=== PATIENT | male | born 1960 | race Hispanic/Latino ===

== ENCOUNTER 2020-04-02 15:10 | Inpatient (IN) | payer OTHER, SELFPAY ==
[~2020-04-02 15:10] MED LIST: Iopamidol 370 76% 100 ML VIAL ONE
[2020-04-02 15:34] LABS: #Lymphocytes 2.3 thou/uL (1.20-3.40); #Monocytes 1.2 thou/uL (0.11-0.59); #Neutrophils 9.8 thou/uL (1.40-6.50); %Basophils 0.3 % (0.0-1.0); %Eosinophils 0.2 % (0.0-10.0); %Lymphocytes 16.9 % (21.0-51.0); %Monocytes 9.3 % (0.0-10.0); %Neutrophils 73.2 % (42.0-75.0); Hemoglobin 15.7 g/dL (14.0-18.0); Mean Corpuscular HGB CONC 34.4 g/dL (32.0-36.0); Mean Corpuscular Hemoglobin 31.2 pg (27.0-31.0); Mean Corpuscular Volume 90.8 fL (78.0-98.0); Platelet Count 199 thou/uL (130-400); RBC Distribution Width 13.2 % (11.5-14.5); Red Blood Cell (RBC) Count 5.03 mill/uL (4.70-6.10); White Blood Cell (WBC) Count 13.3 thou/uL (4.8-10.8)
[2020-04-02 16:03] LABS: ALT (SGPT) 96 U/L (8-55); AST (SGOT) 231 U/L (5-34); Albumin 4.2 g/dL (3.5-5.0); Alkaline Phosphatase 111 U/L (40-110); Anion Gap 14 mmol/L (10-20); BUN (Urea Nitrogen) 9 mg/dL (8.4-25.7); Bilirubin, Total 0.9 mg/dL (0.2-1.2); Calc. Creatinine Clearance 0 mL/min (70-130); Calcium 8.6 mg/dL (7.8-10.44); Carbon Dioxide 24 mmol/L (22-29); Chloride 101 mmol/L (98-107); Estimated GFR-MDRD Greater than 90; Globulin 3.5 g/dL (2.4-3.5); Glucose 103 mg/dL (70-105); Lipase 46 U/L (8-78); Potassium 4.1 mmol/L (3.5-5.1); Protein, Total 7.7 g/dL (6.0-8.3); Sodium 135 mmol/L (136-145)
[2020-04-02] MEDS ORDERED: Acetaminophen/Codeine 30-300mg Tablet PO PRN (16:11)
[2020-04-02] MEDS ORDERED: Zolpidem Tartrate 5 MG TAB PO PRN (16:11)
[2020-04-02] MEDS ORDERED: Mag-Al 1200 mg/1200 mg/30 ML UDCUP PO PRN (16:11)
[2020-04-02] MEDS ORDERED: Nitroglycerin 0.4 MG TAB (25 Tab Bottle) SL PRN (16:11)
[2020-04-02] MEDS ORDERED: traMADol HCl 50 MG TAB PO PRN (16:11)
[2020-04-02] MEDS ORDERED: Milk Of Magnesia 30 ML UDCUP PO PRN (16:11)
[2020-04-02] MEDS ORDERED: Sodium Chloride 0.9% 250 ML IV SCH (16:15)
[2020-04-02] MEDS ORDERED: Heparin 10,000 UNITS/ 10 ML VIAL SLOW IVP SCH (16:15)
[2020-04-02 16:29] LABS: INR-International Normal Ratio 0.9; Prothrombin Time 12.6 sec (12.0-14.7)
[2020-04-02 16:30] LABS: PTT 41.4 sec (22.9-36.1)
[2020-04-02] MEDS ORDERED: Nitroglycerin 0.4 MG TAB (25 Tab Bottle) ONE (16:50)
[2020-04-02] MEDS ORDERED: Morphine 4 MG/ML VIAL ONE (17:11)
[2020-04-02] MEDS ORDERED: Morphine 2 MG/ML VIAL ONE (19:33)
[2020-04-02 22:46] LABS: Troponin I 25.524 ng/mL (< 0.028)
[2020-04-02 23:54] VITALS: BMI 23.9
[2020-04-03] MEDS: Atorvastatin Calcium 40 MG TAB PO SCH ×2 (00:32→20:57)
--- NOTE | 2020-04-03 00:44 | HP ---
CHIEF COMPLAINT: Chest pain. HISTORY OF PRESENT ILLNESS: Mr. Castellanos is a pleasant 59-year-old gentleman, who comes to the hospital for chest pain. He actually presented to a free-standing ER in [place], [place]. It is unclear why he was transferred here and it is unclear why he was accepted being so far away. Apparently, there was concern about ST-elevation MA over there, but I do not know if he was not just accepted at hospitals in [place], which were closer by. Nevertheless, he was transferred here and on arrival, he had an EKG done that showed inferior Q-waves with some ST elevations concerning for an acute MA. He had had pain for about a day at that point and his troponin at the outside facility was about 17. Because he was complaining of ongoing chest pain, he was taken to the catheterization lab emergently, where he was found to have an occluded RCA, which is probably the culprit. RCA is actually very well collateralized from the left and he has epicardial collaterals from the left circumflex. However, the left circumflex is 100% occluded and has also epicardial collaterals to itself from the left main. LAD has sequential 80% lesions with diagonal severe stenosis, so plan is to do open heart surgery once his MA is cooled down a little bit. Currently, Mr. Castellanos is pain free. He states his pain has calmed down now. Coronary artery disease with previous stent from heart catheterization and RCA stent. He states this was many, many years ago. Medication noncompliance. He states he has not seen a physician in many, many years now and he only takes an aspirin. MEDICATIONS: 1. Aspirin 81 mg a day. SOCIAL HISTORY: Occasional alcohol use. No tobacco, no drugs. FAMILY HISTORY: Noncontributory. ALLERGIES: NO KNOWN DRUG ALLERGIES. PAST SURGICAL HISTORY: No surgeries except for the stenting in the past. REVIEW OF SYSTEMS: A 12-point review of systems was done and was found to be negative other than stated in the history of present illness. PHYSICAL EXAMINATION: VITAL SIGNS: Temperature 98.2, pulse 81, respiratory rate 23, saturating 100% on 2 L nasal cannula, blood pressure 128/86. GENERAL: Awake, alert, oriented x3. No distress. [place]er-speaking only. HEENT: Normocephalic atraumatic. NECK: Supple. LUNGS: Clear. CARDIOVASCULAR: S1 and S2. No S3 or S4. There is a grade 2/6 systolic murmur. ABDOMEN: Soft, positive bowel sounds. EXTREMITIES: Trace edema. SKIN: Warm and dry. LABORATORY DATA: Laboratory work was reviewed from outside facility. He has a troponin of 17. We have blood work here and white count was 13, hemoglobin 15, hematocrit 45, and platelet count 199. Chemistries; sodium 135, otherwise unremarkable. Normal GFR. First troponin here was 21.5. Alkaline phosphatase of 111, ALT of 96, AST of 231. BNP was 190. Albumin of 4.2. EKG was reviewed. ASSESSMENT AND PLAN: 1. Acute inferior ST-elevation MA, late presentation over 24 hours old. 2. Multivessel coronary artery disease. 3. Medication noncompliance. PLAN: 1. Evaluation by Cardiothoracic Surgery for consideration of coronary artery bypass grafting. 2. At this point, he is probably done with injury that he was going to have for his MA and we may need to wait for him to cool off a little bit before doing any surgical intervention. 3. Currently, he is pain free. We will continue heparin drip for now and depending on how he does in the next few days, we will decide on the timing of the surgery. 4. High dose statin. 5. Aspirin. No Plavix due to impending surgery. 6. PPI for stress ulcer prophylaxis. 7. Full code. 75 minutes of critical care time at bedside. Job ID: [id number]
[2020-04-03 05:26] LABS: #Basophils 0.1 thou/uL (0.0-0.2); #Lymphocytes 1.8 thou/uL (1.20-3.40); #Monocytes 1.4 thou/uL (0.11-0.59); #Neutrophils 9.2 thou/uL (1.40-6.50); %Basophils 0.5 % (0.0-1.0); %Eosinophils 0.2 % (0.0-10.0); %Lymphocytes 14.5 % (21.0-51.0); %Monocytes 11.3 % (0.0-10.0); %Neutrophils 73.5 % (42.0-75.0); Hemoglobin 14.5 g/dL (14.0-18.0); Mean Corpuscular HGB CONC 34.5 g/dL (32.0-36.0); Mean Corpuscular Hemoglobin 31.7 pg (27.0-31.0); Mean Corpuscular Volume 91.7 fL (78.0-98.0); Mean Platelet Volume 7.2 fL (7.4-10.4); Platelet Count 185 thou/uL (130-400); RBC Distribution Width 13.3 % (11.5-14.5); Red Blood Cell (RBC) Count 4.56 mill/uL (4.70-6.10); White Blood Cell (WBC) Count 12.6 thou/uL (4.8-10.8)
[2020-04-03 06:13] LABS: ALT (SGPT) 77 U/L (8-55); AST (SGOT) 156 U/L (5-34); Albumin 3.7 g/dL (3.5-5.0); Alkaline Phosphatase 95 U/L (40-110); Anion Gap 13 mmol/L (10-20); BUN (Urea Nitrogen) 10 mg/dL (8.4-25.7); Calc. Creatinine Clearance 110 mL/min (70-130); Calcium 8.2 mg/dL (7.8-10.44); Carbon Dioxide 25 mmol/L (22-29); Chloride 100 mmol/L (98-107); Estimated GFR-MDRD Greater than 90; Globulin 3.4 g/dL (2.4-3.5); Glucose 105 mg/dL (70-105); Potassium 3.8 mmol/L (3.5-5.1); Protein, Total 7.1 g/dL (6.0-8.3); Sodium 134 mmol/L (136-145)
[2020-04-03 06:26] LABS: CKMB 45.4 ng/mL (0-6.6); Troponin I 25.654 ng/mL (< 0.028)
--- NOTE | 2020-04-03 08:29 | RAD ---
XR Chest 1 View Portable History: Chest pain Comparison: Radiograph prior day Findings: Lungs are mildly hypoinflated. No confluent airspace consolidation, pneumothorax or effusio n. No acute osseous abnormality. Impression: No acute intrathoracic abnormality.
[2020-04-03] MEDS ORDERED: FLU VACC QS2020-21(6MOS UP)/PF 60 MCG/0.5 ML SYRINGE IM ONE (09:00)
[2020-04-03] MEDS ORDERED: Metoprolol Tartrate 5 MG/5 ML VIAL ONE (09:04)
[2020-04-03] MEDS: Aspirin Chewable 81 MG TAB PO SCH (09:06)
[2020-04-03] MEDS ORDERED: Docusate 100 MG CAP PO SCH (10:00)
[2020-04-03] MEDS ORDERED: Metoprolol Tartrate 5 MG/5 ML VIAL IVP SCH (11:45)
[2020-04-03] MEDS: Heparin 25,000 units/D5W 500 ML IVPB SCH (12:10)
--- NOTE | 2020-04-03 12:24 | PDOC.CPN ---
- Subjective Date: 04/03/20 Time: 12:21 Interval history: No new issue.s Only chest pain when he takes a deep breath otherwise pain free. - Review of Systems General: denies: fever/chills, weight/appetite/sleep changes, night sweats, fatigue Respiratory: denies: cough, congestion, shortness of breath, exercise intolerance Cardiovascular: denies: chest pain, palpitation, edema, paroxysmal nocturnal dyspnea, orthopnea Gastrointestinal: denies: nausea, vomiting, diarrhea, constipation, abd pain, GI bleeding Musculoskeletal: denies: pain, tenderness, stiffness, swelling, arthritis/arthralgias Neurological: denies: numbness, syncope, seizure, weakness - Objective Allergies/Adverse Reactions: Allergies Allergy/AdvReac Type Severity Reaction Status Date / Time No Known Allergies Allergy Unverified 04/02/20 17:30 Visit Medications: Current Medications Acetaminophen/Codeine Phosphate (Acetaminophen/Codeine 30-300mg Tablet) 1 tab PO Q4H PRN PRN Reason: Mild Pain (1-3) Stop: 04/05/20 08:59 Al Hydroxide/Mg Hydroxide (Mag-Al 1200 Mg/1200 Mg/30 Ml Udcup) 30 ml PO Q3H PRN PRN Reason: Indigestion Stop: 04/05/20 08:59 Aspirin (Aspirin Chewable 81 Mg Tab) 81 mg PO DAILY [facility] Stop: 04/05/20 08:59 Last Admin: 04/03/20 09:06 Dose: 81 mg Documented by: Atorvastatin Calcium (Atorvastatin Calcium 40 Mg Tab) 80 mg PO HS [facility] Stop: 04/05/20 08:59 Last Admin: 04/03/20 00:32 Dose: Not Given Documented by: Docusate Sodium (Docusate 100 Mg Cap) 100 mg PO BID [facility] Stop: 04/05/20 08:59 Heparin Sodium (Porcine) (Heparin 10,000 Units/ 10 Ml Vial) 0 units SLOW IVP ASDIR [facility]; Protocol Stop: 04/05/20 08:59 Heparin Sodium/Dextrose (Heparin 25,000 Units/D5w) 500 mls @ 0 mls/hr IVPB INF [facility]; Protocol Stop: 04/05/20 08:59 Last Admin: 04/03/20 12:10 Dose: 500 mls Documented by: Cefazolin Sodium/Dextrose 2 gm (/ Device) 50 mls @ 100 mls/hr IVPB ONCALL-OR [facility] Stop: 04/05/20 18:00 Magnesium Hydroxide (Milk Of Magnesia 30 Ml Udcup) 30 ml PO Q12H PRN PRN Reason: Constipation Stop: 04/05/20 08:59 Metoprolol Tartrate (Metoprolol Tartrate 25 Mg Tab) 25 mg PO BID [facility] Metoprolol Tartrate (Metoprolol Tartrate 5 Mg/5 Ml Vial) 2.5 mg IVP NOW [facility] Stop: 04/03/20 14:00 Last Admin: 04/03/20 11:55 Dose: Not Given Documented by: Metoprolol Tartrate (Metoprolol Tartrate 25 Mg Tab) 25 mg PO BID [facility] Miscellaneous Information (Communication Order-Pharmacy ) 1 each FS ONE [facility] Stop: 04/05/20 09:00 Nitroglycerin (Nitroglycerin 0.4 Mg Tab (25 Tab Bottle)) 0.4 mg SL Q5MIN PRN PRN Reason: Chest Pain Stop: 04/05/20 08:59 Tramadol HCl (Tramadol Hcl 50 Mg Tab) 50 mg PO Q6H PRN PRN Reason: Pain Stop: 04/05/20 08:59 Zolpidem Tartrate (Zolpidem Tartrate 5 Mg Tab) 5 mg PO HSPRN PRN PRN Reason: Insomnia Stop: 04/05/20 08:59 Vital Signs & Weight: Vital Signs Temp Pulse Ox 04/03/20 12:00 98.4 F 04/03/20 09:00 99.0 F 04/03/20 08:00 99 04/03/20 04:00 98.8 F Weight 143 lb 15.39 oz - Physical Exam General: alert & oriented x3 HEENT: mucus membranes moist Neck: supple neck Cardiac: regular rate and rhythm Lungs: normal breath sounds Neuro: grossly intact Abdomen: active bowel sounds Extremities: no edema Skin: clear Musculoskeletal: no pain - Labs Result Diagrams: 04/03/20 05:15 04/03/20 05:15 Troponin/CKMB CK-MB (CK-2) 45.4 ng/mL (0-6.6) H* 04/03/20 05:15 Troponin I 25.654 ng/mL (< 0.028) H* 04/03/20 05:15 - Telemetry Sinus rhythms and dysrhythmias: sinus rhythm - Assessment/Plan Assessment/Plan: 1. Inferior STEMI, late presentation 2. Multivessel CAD. 3. Ischemic cardiomyopathy PLAN: - CT surgery evaluation done. - Plan to do CABG in 2 days after cool down from late presentation [place]. - Continue Aspirin and high dose statin as well as heparin gtt.
[2020-04-03 12:44] LABS: #Neutrophils 7.7 thou/uL (1.40-6.50); %Basophils 0.4 % (0.0-1.0); %Eosinophils 0.3 % (0.0-10.0); %Lymphocytes 18.2 % (21.0-51.0); %Monocytes 9.4 % (0.0-10.0); %Neutrophils 71.7 % (42.0-75.0); Hemoglobin 14.2 g/dL (14.0-18.0); Mean Corpuscular HGB CONC 33.6 g/dL (32.0-36.0); Mean Corpuscular Volume 92.4 fL (78.0-98.0); Platelet Count 189 thou/uL (130-400); RBC Distribution Width 13.3 % (11.5-14.5); Red Blood Cell (RBC) Count 4.58 mill/uL (4.70-6.10); White Blood Cell (WBC) Count 10.7 thou/uL (4.8-10.8)
[2020-04-03 13:06] LABS: ALT (SGPT) 70 U/L (8-55); AST (SGOT) 129 U/L (5-34); Albumin 3.6 g/dL (3.5-5.0); Alkaline Phosphatase 93 U/L (40-110); Anion Gap 12 mmol/L (10-20); BUN (Urea Nitrogen) 9 mg/dL (8.4-25.7); Bilirubin, Total 1.1 mg/dL (0.2-1.2); Calc. Creatinine Clearance 102 mL/min (70-130); Calcium 8.2 mg/dL (7.8-10.44); Carbon Dioxide 25 mmol/L (22-29); Cardiac Risk 3.2 (Less than 4.5); Chloride 100 mmol/L (98-107); Cholesterol 150 mg/dl (< 200 Desired); Estimated GFR-MDRD Greater than 90; Globulin 3.3 g/dL (2.4-3.5); Glucose 171 mg/dL (70-105); HDL Cholesterol 47 mg/dL (>60 Neg Risk); LDL Cholesterol, Calculated 86 mg/dL; Potassium 3.5 mmol/L (3.5-5.1); Protein, Total 6.9 g/dL (6.0-8.3); Sodium 133 mmol/L (136-145); Triglycerides 83 mg/dL (Less than 150)
[2020-04-03 13:14] LABS: CKMB 27.1 ng/mL (0-6.6); Troponin I 23.347 ng/mL (< 0.028)
[2020-04-03] MEDS: Metoprolol Tartrate 25 MG TAB PO SCH ×2 (20:57→21:03)
[2020-04-03] MEDS: Docusate 100 MG CAP PO SCH (20:57)
[2020-04-04 05:20] LABS: #Basophils 0.1 thou/uL (0.0-0.2); #Eosinphils 0.1 thou/uL (0.0-0.7); #Lymphocytes 2.2 thou/uL (1.20-3.40); #Neutrophils 5.3 thou/uL (1.40-6.50); %Basophils 0.7 % (0.0-1.0); %Eosinophils 0.9 % (0.0-10.0); %Lymphocytes 25.9 % (21.0-51.0); %Neutrophils 61.5 % (42.0-75.0); Hemoglobin 14.3 g/dL (14.0-18.0); Mean Corpuscular HGB CONC 34.1 g/dL (32.0-36.0); Mean Corpuscular Hemoglobin 31.5 pg (27.0-31.0); Mean Corpuscular Volume 92.4 fL (78.0-98.0); Mean Platelet Volume 7.3 fL (7.4-10.4); Platelet Count 192 thou/uL (130-400); RBC Distribution Width 13.3 % (11.5-14.5); Red Blood Cell (RBC) Count 4.55 mill/uL (4.70-6.10); White Blood Cell (WBC) Count 8.7 thou/uL (4.8-10.8)
[2020-04-04 05:49] LABS: ALT (SGPT) 66 U/L (8-55); AST (SGOT) 88 U/L (5-34); Albumin 3.5 g/dL (3.5-5.0); Alkaline Phosphatase 100 U/L (40-110); Anion Gap 10 mmol/L (10-20); BUN (Urea Nitrogen) 10 mg/dL (8.4-25.7); Bilirubin, Total 1.1 mg/dL (0.2-1.2); Calc. Creatinine Clearance 103 mL/min (70-130); Calcium 8.4 mg/dL (7.8-10.44); Carbon Dioxide 28 mmol/L (22-29); Chloride 101 mmol/L (98-107); Estimated GFR-MDRD Greater than 90; Globulin 3.5 g/dL (2.4-3.5); Glucose 120 mg/dL (70-105); Potassium 3.7 mmol/L (3.5-5.1); Sodium 135 mmol/L (136-145)
[2020-04-04 08:47] LABS: Hemoglobin A1c 5.5 % (4.0-6.0)
[2020-04-04] MEDS: Metoprolol Tartrate 25 MG TAB PO SCH ×4 (09:27→20:18)
[2020-04-04] MEDS: Aspirin Chewable 81 MG TAB PO SCH (09:27)
[2020-04-04] MEDS: Docusate 100 MG CAP PO SCH ×2 (09:27→20:18)
--- NOTE | 2020-04-04 09:38 | CON ---
DATE OF CONSULTATION: 04/03/2020 REQUESTING PHYSICIAN: Dr. Benton. CHIEF COMPLAINT: Chest pain. HISTORY OF PRESENT ILLNESS: The patient is a 59-year-old man who is Thai-speaking only. He was transferred here from [place] with prolonged chest pain, inferior ST elevations and a positive troponin and underwent emergent cardiac catheterization that demonstrated severe 3-vessel coronary disease. The patient when questioned about the right coronary stent, said that he had undergone stenting many years ago and that he has not seen a physician in many years. His only medication that he currently takes is aspirin and it is not clear what other past medical history he might have. The interview was conducted with the assistance of a parcel post weigher service as well as reviewing the chart and the history documented by Dr. Benton, who is fluent in Thai. The patient reported substernal chest pain that was pleuritic in nature and that he had it with inhalation, but not constantly. He did, however, report jaw discomfort that would come and go and it had been present during his episode of chest pain. PAST MEDICAL HISTORY: The patient denies any past medical history beyond his coronary stenting. MEDICATIONS: His only medication is aspirin. ALLERGIES: HE DENIES ANY MEDICAL OR FOOD ALLERGIES. SOCIAL HISTORY: He says that he does not smoke and never has. FAMILY HISTORY: He denies any family history of coronary or cerebrovascular disease. REVIEW OF SYSTEMS: He denies any transient eye, speech, facial, or extremity symptoms suggestive of TIAs. He denies any leg pain on ambulation. He denies any shortness of breath. PHYSICAL EXAMINATION: VITAL SIGNS: He is 5 feet 4 inches and weighs 142.2 pounds. In the orthodontic laboratory technician, his heart rate was 82 and blood pressure 131/90. The following morning in the ICU, his heart rate was 88, blood pressure 118/64. His T-max overnight has been 98.8. On 3 L nasal cannula, his O2 saturations are 99% to 100%. HEENT: He has no xanthelasma. NECK: No JVD. No carotid bruits. LUNGS: He has clear breath sounds. HEART: Regular rate and rhythm without murmur, gallop, or rub. ABDOMEN: Soft, nontender without any organomegaly, masses, or bruits. EXTREMITIES: He has a right femoral sheath in place. He has easily palpable bilateral radial and left femoral pulses. On the right side, his dorsalis pedis and posterior tibial pulses were fairly easy to feel. His left dorsalis pedis seemed diminished and I was not able to palpate the left posterior tibial pulse. He has no clubbing, cyanosis, or edema. No obvious varicosities. NEUROLOGIC: Grossly nonfocal. His clinical Milad test is normal bilaterally and when testing his left (nondominant) hand with pulse ox waveform, he had a normal waveform that dampened with occlusion of both radial and ulnar vessels and returned to normal with release of the ulnar. LABORATORY DATA: His chest x-ray shows borderline cardiomegaly and some mild edema. His EKG showed Q-waves, ST elevations and T-wave inversions in inferior leads. His white count was 13.3, hemoglobin 15.7, hematocrit 45.7, platelets 199,000. His followup H and H were 14.5 and 41.9. His PT was 12.6 with an INR of 0.9 and on heparin drip his PTT is 94.7. His electrolytes were normal. His glucose 103, BUN 9, creatinine 0.72. Followup chemistries this morning showed a BUN of 10, creatinine 0.67, and glucose of 105. His calcium was 8.6, albumin 4.2, bilirubin 0.9, alkaline phosphatase was 111, AST 231, ALT 96. Those all came down with an alkaline phosphatase 95, AST 156 and ALT of 77. On presentation here, his troponin was 21.553 and BNP was 190.0. His followup troponin at about 10 o'clock last night was 25.524 and at 5 o'clock this morning was 25.654. His cardiac catheterization shows a right-dominant system with an occluded right coronary artery that had a proximal stent. There appears to be some subtle competitive flow in the distal right coronary artery that fills from left-sided collaterals and he has an occluded circumflex just beyond a very small OM1 and that vessel fills well by left-sided collaterals. He has about an 80% or 90% stenosis in his LAD at the first septal gear lapper and then another one just beyond a modest sized diagonal. He has a very small diagonal that comes off proximal to the first septal gear lapper. His LVEF was somewhere around 40% with a large area of inferior akinesis, but the base of the heart does appear to contract. LV pressure was 122/13 with an EDP of 15. An aortic pressure on pullback was 114/74 with a mean of 93. On echocardiography, his septum perhaps is a little hypokinetic but contracts. IMPRESSION AND RECOMMENDATION: 3-vessel coronary disease with acute myocardial infarction. Mildly decreased left ventricle function. I think he clearly would benefit from surgical revascularization and the only real issues in play have to do with timing of the procedure, appropriate conduit whether to bypass the right coronary system and how to manage him in between now and surgery. My biggest concern in the short run has to do with what he describes to me of jaw discomfort that comes and goes, suggesting some subtle ongoing ischemia or recurring ischemia. I have asked that he get a dose of IV Lopressor and then we will start him on oral Lopressor. I hope to be able to do his bypass surgery on Sunday morning, but of course will be prepared to change that schedule according to his clinical course. Job ID: [id number]
[2020-04-04] MEDS: Heparin 25,000 units/D5W 500 ML IVPB SCH (13:13)
--- NOTE | 2020-04-04 14:42 | PDOC.CPN ---
- Subjective Date: 04/04/20 Time: 14:39 Interval history: No chest pain. No new issues. - Review of Systems General: denies: fever/chills, weight/appetite/sleep changes, night sweats, fatigue Respiratory: denies: cough, congestion, shortness of breath, exercise intolerance Cardiovascular: denies: chest pain, palpitation, edema, paroxysmal nocturnal dyspnea, orthopnea Gastrointestinal: denies: nausea, vomiting, diarrhea, constipation, abd pain, GI bleeding Musculoskeletal: denies: pain, tenderness, stiffness, swelling, arthritis/arthralgias Neurological: denies: numbness, syncope, seizure, weakness - Objective Allergies/Adverse Reactions: Allergies Allergy/AdvReac Type Severity Reaction Status Date / Time No Known Allergies Allergy Unverified 04/02/20 17:30 Visit Medications: Current Medications Acetaminophen/Codeine Phosphate (Acetaminophen/Codeine 30-300mg Tablet) 1 tab PO Q4H PRN PRN Reason: Mild Pain (1-3) Stop: 04/05/20 08:59 Al Hydroxide/Mg Hydroxide (Mag-Al 1200 Mg/1200 Mg/30 Ml Udcup) 30 ml PO Q3H PRN PRN Reason: Indigestion Stop: 04/05/20 08:59 Aspirin (Aspirin Chewable 81 Mg Tab) 81 mg PO DAILY [facility] Stop: 04/05/20 08:59 Last Admin: 04/04/20 09:27 Dose: 81 mg Documented by: Atorvastatin Calcium (Atorvastatin Calcium 40 Mg Tab) 80 mg PO HS [facility] Stop: 04/05/20 08:59 Last Admin: 04/03/20 20:57 Dose: 80 mg Documented by: Docusate Sodium (Docusate 100 Mg Cap) 100 mg PO BID [facility] Stop: 04/05/20 08:59 Last Admin: 04/04/20 09:27 Dose: 100 mg Documented by: Heparin Sodium (Porcine) (Heparin 10,000 Units/ 10 Ml Vial) 0 units SLOW IVP ASDIR [facility]; Protocol Stop: 04/05/20 08:59 Heparin Sodium/Dextrose (Heparin 25,000 Units/D5w) 500 mls @ 0 mls/hr IVPB INF [facility]; Protocol Stop: 04/05/20 08:59 Last Admin: 04/04/20 13:13 Dose: 500 mls Documented by: Cefazolin Sodium/Dextrose 2 gm (/ Device) 50 mls @ 100 mls/hr IVPB ONCALL-OR [facility]ER[facility] Stop: 04/05/20 18:00 Magnesium Hydroxide (Milk Of Magnesia 30 Ml Udcup) 30 ml PO Q12H PRN PRN Reason: Constipation Stop: 04/05/20 08:59 Metoprolol Tartrate (Metoprolol Tartrate 25 Mg Tab) 25 mg PO BID [facility] Last Admin: 04/04/20 09:27 Dose: 25 mg Documented by: Metoprolol Tartrate (Metoprolol Tartrate 25 Mg Tab) 25 mg PO BID [facility] Last Admin: 04/04/20 09:28 Dose: Not Given Documented by: Miscellaneous Information (Communication Order-Pharmacy ) 1 each FS ONE [facility] Stop: 04/05/20 09:00 Nitroglycerin (Nitroglycerin 0.4 Mg Tab (25 Tab Bottle)) 0.4 mg SL Q5MIN PRN PRN Reason: Chest Pain Stop: 04/05/20 08:59 Tramadol HCl (Tramadol Hcl 50 Mg Tab) 50 mg PO Q6H PRN PRN Reason: Pain Stop: 04/05/20 08:59 Zolpidem Tartrate (Zolpidem Tartrate 5 Mg Tab) 5 mg PO HSPRN PRN PRN Reason: Insomnia Stop: 04/05/20 08:59 Vital Signs & Weight: Vital Signs Temp Pulse Ox 04/04/20 12:00 98.3 F 04/04/20 09:00 98.3 F 04/04/20 08:00 98 04/04/20 04:00 98.4 F Weight 143 lb 15.39 oz - Physical Exam General: alert & oriented x3 HEENT: mucus membranes moist Neck: supple neck Cardiac: regular rate and rhythm Lungs: normal breath sounds Neuro: grossly intact, no lateralizing findings Abdomen: active bowel sounds Extremities: no edema Skin: clear Musculoskeletal: no pain - Labs Result Diagrams: 04/04/20 04:40 04/04/20 04:40 Troponin/CKMB CK-MB (CK-2) 27.1 ng/mL (0-6.6) H* 04/03/20 12:34 Troponin I 23.347 ng/mL (< 0.028) H* 04/03/20 12:34 - Telemetry Sinus rhythms and dysrhythmias: sinus rhythm - Assessment/Plan Assessment/Plan: 1. Inferior STEMI, late presentation 2. Multivessel CAD. 3. Ischemic cardiomyopathy PLAN: - CABG tomorrow. - Continue Aspirin and high dose statin as well as heparin gtt.
[2020-04-04 16:26] LABS: Hemoglobin 14.4 g/dL (14.0-18.0); Platelet Count 197 thou/uL (130-400)
[2020-04-04] MEDS: Atorvastatin Calcium 40 MG TAB PO SCH (20:18)
[2020-04-05 04:39] LABS: #Eosinphils 0.1 thou/uL (0.0-0.7); #Lymphocytes 2.1 thou/uL (1.20-3.40); #Monocytes 0.8 thou/uL (0.11-0.59); #Neutrophils 5.1 thou/uL (1.40-6.50); %Basophils 0.4 % (0.0-1.0); %Eosinophils 1.3 % (0.0-10.0); %Lymphocytes 25.4 % (21.0-51.0); %Neutrophils 62.9 % (42.0-75.0); Hemoglobin 14.4 g/dL (14.0-18.0); Mean Corpuscular HGB CONC 33.7 g/dL (32.0-36.0); Mean Corpuscular Hemoglobin 31.1 pg (27.0-31.0); Mean Corpuscular Volume 92.1 fL (78.0-98.0); Mean Platelet Volume 6.8 fL (7.4-10.4); Platelet Count 218 thou/uL (130-400); RBC Distribution Width 13.2 % (11.5-14.5); Red Blood Cell (RBC) Count 4.64 mill/uL (4.70-6.10); White Blood Cell (WBC) Count 8.1 thou/uL (4.8-10.8)
[2020-04-05 05:02] LABS: ALT (SGPT) 59 U/L (8-55); AST (SGOT) 50 U/L (5-34); Albumin 3.4 g/dL (3.5-5.0); Alkaline Phosphatase 104 U/L (40-110); Anion Gap 11 mmol/L (10-20); BUN (Urea Nitrogen) 10 mg/dL (8.4-25.7); Bilirubin, Total 0.7 mg/dL (0.2-1.2); Calc. Creatinine Clearance 103 mL/min (70-130); Calcium 8.4 mg/dL (7.8-10.44); Carbon Dioxide 26 mmol/L (22-29); Chloride 103 mmol/L (98-107); Estimated GFR-MDRD Greater than 90; Globulin 3.6 g/dL (2.4-3.5); Glucose 119 mg/dL (70-105); Potassium 3.9 mmol/L (3.5-5.1); Sodium 136 mmol/L (136-145)
[2020-04-05] MEDS ORDERED: CEFAZOLIN 2 GM in Premix Bag 1 BAG IVPB SCH (06:00)
[2020-04-05] MEDS ORDERED: Communication Order-Pharmacy FS SCH (06:00)
[2020-04-05 07:28] LABS: SARS-CoV-2 NAA Rapid Test Not Detected (NotDetected)
[2020-04-05] MEDS ORDERED: Albumin 5% 0 ML ONE (08:38)
[2020-04-05] MEDS ORDERED: Albumin 5% 500 ML ONE (08:51)
[2020-04-05] MEDS ORDERED: Dexmedetomidine 200 MCG/2 ML VIAL ONE (09:01)
[2020-04-05] MEDS ORDERED: Fentanyl 100 MCG/2 ML VIAL ONE (09:01)
[2020-04-05] MEDS ORDERED: Phenylephrine 10 MG/ML VIAL ONE (09:01)
[2020-04-05] MEDS ORDERED: Midazolam HCl 2 mg/2 ml Vial ONE (09:01)
[2020-04-05] MEDS ORDERED: Heparin 10,000 UNITS/ 10 ML VIAL ONE (09:10)
[2020-04-05] MEDS ORDERED: Lidocaine 1% PF 5 ML VIAL ONE (09:28)
[2020-04-05] MEDS ORDERED: Nitroglycerin 50 MG/250 ML BOT ONE (09:28)
[2020-04-05] MEDS ORDERED: Thrombin 5000 UNITS/5 ML VIAL ONE (09:28)
[2020-04-05] MEDS ORDERED: Ketorolac Tromethamine 30 MG/ML VIAL ONE (09:28)
[2020-04-05] MEDS ORDERED: Lidocaine 2% PF 100 mg/5 ml Syringe ONE (09:28)
[2020-04-05] MEDS ORDERED: Cardioplegic Soln 1,000 ML BAG ONE (09:28)
[2020-04-05] MEDS ORDERED: Ondansetron PF 4 MG/2 ML Vial ONE (09:28)
[2020-04-05] MEDS ORDERED: Papaverine 60 MG/2 ML VIAL ONE ×2 (09:28→09:44)
[2020-04-05] MEDS ORDERED: Aminocaproic Acid 5 GM/20 ML VIAL ONE (09:28)
[2020-04-05] MEDS ORDERED: Vecuronium 10 MG VIAL ONE (09:28)
[2020-04-05] MEDS ORDERED: Sodium Bicarb 50 MEQ/50 ML Abboject 8.4% SYRINGE ONE (09:28)
[2020-04-05] MEDS ORDERED: Magnesium Sulfate 1 GM/2 ML VIAL ONE (09:28)
[2020-04-05] MEDS ORDERED: Dexamethasone 20 MG/5 ML VIAL ONE (09:28)
[2020-04-05] MEDS ORDERED: Mannitol 12.5 GM/50 ML ONE (09:28)
[2020-04-05] MEDS ORDERED: PROPOFOL 200 MG/20 ML VIAL ONE (09:28)
[2020-04-05] MEDS ORDERED: Rocuronium Bromide 10 MG/ML (10ML VIAL) ONE (09:28)
[2020-04-05] MEDS ORDERED: Heparin 5,000 UNITS/ML VIAL ONE (09:28)
[2020-04-05] MEDS ORDERED: Norepinephrine 4 MG/4 ML VIAL ONE (09:28)
[2020-04-05] MEDS ORDERED: Potassium Chloride 60 MEQ/30 ML VIAL ONE (09:28)
[2020-04-05] MEDS ORDERED: Heparin 30,000 units/30 ml VIAL ONE (09:28)
[2020-04-05] MEDS ORDERED: Calcium Chloride 1 GM/10 ML Abboject SYRINGE ONE (09:28)
[2020-04-05] MEDS: Metoprolol Tartrate 25 MG TAB PO SCH ×2 (09:32→09:33)
[2020-04-05] MEDS ORDERED: CEFAZOLIN 1 GM VIAL ONE (11:30)
[2020-04-05] MEDS ORDERED: Milrinone 10 MG/10 ML VIAL ONE (11:30)
[2020-04-05] MEDS ORDERED: Insulin Regular 300 UNITS/3 ML VIAL ONE (13:22)
--- NOTE | 2020-04-05 14:05 | PDOC.CPN ---
- Subjective Date: 04/05/20 Time: 20:23 Interval history: He had his CABG. - Review of Systems ROS unobtainable: due to endotracheal tube - Objective Allergies/Adverse Reactions: Allergies Allergy/AdvReac Type Severity Reaction Status Date / Time No Known Allergies Allergy Unverified 04/02/20 17:30 Visit Medications: Current Medications Cefazolin Sodium/Dextrose 2 gm (/ Device) 50 mls @ 100 mls/hr IVPB ONCALL-OR [facility] Stop: 04/05/20 18:00 Metoprolol Tartrate (Metoprolol Tartrate 25 Mg Tab) 25 mg PO BID [facility] Last Admin: 04/05/20 09:32 Dose: 25 mg Documented by: Vital Signs & Weight: Vital Signs Temp Pulse Ox 04/05/20 07:27 100 04/05/20 07:00 98.9 F 04/05/20 04:00 98.1 F Weight 143 lb 15.39 oz - Physical Exam General: other (Intubated) HEENT: mucus membranes moist Neck: supple neck Cardiac: regular rate and rhythm Lungs: clear to auscultation Neuro: grossly intact Abdomen: active bowel sounds Extremities: no edema Skin: clear Musculoskeletal: no pain - Labs Result Diagrams: 04/05/20 16:06 04/05/20 16:06 Troponin/CKMB CK-MB (CK-2) 27.1 ng/mL (0-6.6) H* 04/03/20 12:34 Troponin I 23.347 ng/mL (< 0.028) H* 04/03/20 12:34 - Telemetry Sinus rhythms and dysrhythmias: sinus rhythm - Assessment/Plan Assessment/Plan: 1. Inferior STEMI, late presentation 2. Multivessel CAD. 3. Ischemic cardiomyopathy 4. S/P CABG PLAN: - Continue supportive care. - ASA statin for life. - Will follow.
[2020-04-05] MEDS ORDERED: hydrALAZINE 20 MG/ML VIAL SLOW IVP PRN (15:30)
[2020-04-05] MEDS ORDERED: Morphine 2 MG/ML VIAL SLOW IVP PRN (15:30)
[2020-04-05] MEDS ORDERED: Hetastarch 6% 500 ML 500 ML IVPB PRN (15:30)
[2020-04-05] MEDS ORDERED: Fentanyl 100 MCG/2 ML VIAL SLOW IVP PRN ×2 (15:30)
[2020-04-05] MEDS ORDERED: Bisacodyl 10 MG SUPP PR PRN (15:30)
[2020-04-05] MEDS ORDERED: Bisacodyl 5 MG TAB PO PRN (15:30)
[2020-04-05] MEDS ORDERED: Post-Op Insulin Drip Protocol IVPB ONE (15:30)
[2020-04-05] MEDS ORDERED: Acetaminophen 325 MG TAB PO PRN (15:30)
[2020-04-05] MEDS ORDERED: Nitroglycerin 50 MG/250 ML BOT 250 ML IVPB PRN (15:30)
[2020-04-05] MEDS ORDERED: Ondansetron PF 4 MG/2 ML Vial IVP PRN (15:30)
[2020-04-05] MEDS ORDERED: Potassium Chloride 20 MEQ/100 ML PREMIX BAG IVPB PRN (15:30)
[2020-04-05] MEDS ORDERED: niCARdipine 25 MG in Sodium Chloride 0.9% 250 ML 240 ML IVPB PRN (15:30)
[2020-04-05] MEDS ORDERED: Promethazine HCl 25 MG/ML VIAL IM PRN (15:30)
[2020-04-05] MEDS ORDERED: Mag-Al 1200 mg/1200 mg/30 ML UDCUP PO PRN (15:30)
[2020-04-05] MEDS ORDERED: Norepinephrine 8 MG/0.9% NS 250 ML IVPB PRN (15:30)
[2020-04-05] MEDS ORDERED: Guaifenesin DM 100-10/5 ML UDCUP PO PRN (15:30)
[2020-04-05 16:09] LABS: Actual Bicarbonate (HCO3a) 18.7 mEq/L (22-28); Base Excess (BEa) -4.1 mEq/L (-2.0 to +3.0); CO2 Tension 27.9 mmHg (35.0-45.0); Calcium, Ionized (arterial) 1.14 mmol/L (1.12-1.30); Carboxyhemoglobin (COHb) 0.1 gm% (0.0-3.0); Hemoglobin (Hb) 12.6 g/dL (14.0-18.0); O2 Tension (PaO2), arterial 238.1 mmHg (80.0-100.0); Potassium - ABG Lab 4.01 mmol/L (3.70-5.30); pH, Arterial 7.44 (7.35-7.45)
[2020-04-05] MEDS ORDERED: Norepinephrine 8 MG/0.9% NS 250 ML ONE (16:13)
[2020-04-05] MEDS ORDERED: Dextrose 50% Abboject 50 ML SYRINGE SLOW IVP PRN (16:15)
[2020-04-05] MEDS ORDERED: HUMULIN R 100 UNITS in Sodium Chloride 0.9% 100 ML IVPB SCH (16:15)
[2020-04-05] MEDS ORDERED: Dextrose 5% in Water 1,000 ML IV PRN (16:15)
[2020-04-05 16:17] LABS: ALV-art Gradient 226.125 mmHg (0-20); Puncture Site ART LINE
[2020-04-05 16:19] LABS: #Eosinphils 0.1 thou/uL (0.0-0.7); #Lymphocytes 1.8 thou/uL (1.20-3.40); #Monocytes 1.1 thou/uL (0.11-0.59); #Neutrophils 12.9 thou/uL (1.40-6.50); %Basophils 0.2 % (0.0-1.0); %Eosinophils 0.4 % (0.0-10.0); %Lymphocytes 11.3 % (21.0-51.0); %Monocytes 6.9 % (0.0-10.0); %Neutrophils 81.2 % (42.0-75.0); Hemoglobin 12.6 g/dL (14.0-18.0); Mean Corpuscular HGB CONC 34.1 g/dL (32.0-36.0); Mean Corpuscular Hemoglobin 31.6 pg (27.0-31.0); Mean Corpuscular Volume 92.6 fL (78.0-98.0); Mean Platelet Volume 7.7 fL (7.4-10.4); Platelet Count 136 thou/uL (130-400); RBC Distribution Width 13.1 % (11.5-14.5); Red Blood Cell (RBC) Count 3.99 mill/uL (4.70-6.10); White Blood Cell (WBC) Count 15.8 thou/uL (4.8-10.8)
[2020-04-05 16:26] LABS: INR-International Normal Ratio 1.2; PTT 32.1 sec (22.9-36.1); Prothrombin Time 15.7 sec (12.0-14.7)
[2020-04-05] MEDS: Insulin Regular 300 UNITS/3 ML VIAL SC PRN ×3 (16:26→23:26)
[2020-04-05] MEDS: Sodium Chloride 0.9% 1,000 ML IV SCH (16:28)
--- NOTE | 2020-04-05 16:28 | RAD ---
Chest one view HISTORY: Heart surgery. COMPARISON: 04/03/2020. FINDINGS: Cardiac silhouette is magnified and upper limits of normal in size. Pulmonary vasculature i s unremarkable. Mediastinum is midline with new postoperative changes. Tip of an endotracheal catheter overlies the u pper right mainstem bronchus. Tip of a left subclavian central venous catheter overlies the superior vena cava. Mediastinal drains are in place. Small amount of mediastinal gas at the left cardiac margin. No evidence of pneumothorax. Left hemidiaphragm is obscured by postoperative atelectasis. IMPRESSION : Right mainstem intubation. Catheter should probably be withdrawn approximately 3 cm for better positi oning Postoperative changes with left basilar atelectasis. Findings were called to Varsha, the patient's nurse in the CCU, at 1620 hours. Code CR.
[2020-04-05] MEDS: Ketorolac Tromethamine 30 MG/ML VIAL IVP SCH ×2 (16:33→21:43)
[2020-04-05] MEDS ORDERED: Sodium Bicarb 50 MEQ/50 ML Abboject 8.4% SYRINGE IVP SCH (16:45)
[2020-04-05] MEDS: Milrinone Lactate/D5W 20 MG in Premix Bag 1 BAG IV SCH (17:00)
[2020-04-05 17:04] LABS: Anion Gap 12 mmol/L (10-20); BUN (Urea Nitrogen) 12 mg/dL (8.4-25.7); Calc. Creatinine Clearance 98 mL/min (70-130); Calcium 7.8 mg/dL (7.8-10.44); Carbon Dioxide 20 mmol/L (22-29); Chloride 111 mmol/L (98-107); Estimated GFR-MDRD Greater than 90; Glucose 115 mg/dL (70-105); Potassium 4.5 mmol/L (3.5-5.1); Sodium 138 mmol/L (136-145)
[2020-04-05] MEDS: Famotidine/PF 20 mg/2ml Vial SLOW IVP SCH (21:19)
--- NOTE | 2020-04-05 21:44 | OP ---
DATE OF PROCEDURE: 04/05/2020 PROCEDURE PERFORMED: Coronary artery bypass grafting x4 with sequential left internal mammary artery to the 2nd diagonal to the distal LAD, left radial artery from the aorta to the obtuse marginal, and reverse greater saphenous vein graft from aorta to the PDA. PREOPERATIVE DIAGNOSES: Coronary artery disease, status post inferior ST-elevation myocardial infarction with ischemic cardiomyopathy. POSTOPERATIVE DIAGNOSES: Coronary artery disease, status post inferior ST-elevation myocardial infarction with ischemic cardiomyopathy, with RV infarction. ASSISTANTS: 1. Terrell Locke MD. 2. Khang Luevano MD. ANESTHESIA: General endotracheal anesthesia. INDICATIONS: The patient is a 59-year-old man with a distant history of right coronary artery stenting, was on no medications other than aspirin. He had a prolonged chest pain that has been going on for roughly a day, but was still ongoing and associated with inferior ST elevations when he presented in transfer from an outlying facility. Cardiac catheterization demonstrated severe 3-vessel coronary artery disease with high-grade LAD lesion at the first septal health economist and one more distally isolating a fairly good-sized second diagonal and an occluded circumflex that led to a distal arborization. He had an occluded right coronary. He had jaw pain on and off for much of the night following his catheterization and that resolved with the addition of beta blockade. He is now taken to the operating room in stable condition for surgical revascularization. FINDINGS: Prepump, the patient's ejection fraction was about 20% to 25% by transesophageal echocardiography, and upon opening the pericardium, the RV was noted to be somewhat distended and poorly contractile with a large band of hemorrhagic changes anteriorly, along the diaphragmatic edge inferiorly. There was scant gross transmural scar along the inferior margin of the LV, although it was poorly contractile. Once on pump and the heart could be examined, there were also hemorrhagic changes along the distal arborization of the circumflex. The mammary had good flow and was of good quality. The radial artery was of good quality as was the saphenous vein. The distal LAD was about 1.5 to 2 mm vessel as was the 2nd diagonal. The second OM, which was grafted was about 2 mm vessel. The PDA was about a 1.5 mm vessel. Pump time was 115 minutes. Cross-clamp time was 66 minutes. Post CABG, after having been loaded with Primacor and started on Levophed, the RV was more contractile. The inferior wall still moved poorly. The LVEF was perhaps 30% or 35%. DESCRIPTION OF PROCEDURE: After informed consent was obtained, the patient was taken to the operating room, placed in supine position on the operating table. After the induction of general anesthesia, the patient's left greater saphenous vein was ultrasonographically mapped and marked. He was placed in Trendelenburg and his left upper chest was prepped and draped in sterile fashion. A left subclavian central line was placed using a triple-lumen central line kit and Seldinger technique. All 3 ports easily aspirated and flushed. The line was secured with suture. The patient's torso, groins, left upper extremity and bilateral lower extremities were prepped and draped in sterile fashion. A longitudinal incision was made over the palpable radial pulse of the left wrist. The radial artery was exposed and isolated and a test occlusion proximally was performed. There was still a palpable pulse in the radial artery distal to that. Serially, the exposed radial artery was isolated with side clips being ligated and divided using hemoclips and scissors. It was exposed deep to the skin, subcutaneous tissue, and muscle bellies and the skin incision extended until the radial artery was skeletonized from the wrist to its origin from the brachial artery. The radial artery was doubly ligated and divided proximally at its origin from the brachial artery and there was good back bleeding from it. It was doubly ligated and divided at the wrist. The distal end of it was cannulated with a blunt-tip irrigating needle and then the radial artery was distended with papaverine solution to relieve spasm and to assess for adequacy of control of side branches. The radial artery was placed in an emesis basin and Ray-Tecs soaked with papaverine solution. The arm was irrigated, inspected for hemostasis and closed in layers of subcutaneous, subcuticular Vicryl. Steri-Strips and a dressing were applied. The arm was wrapped with an Jose wrap and tucked. Meanwhile, the legislative assistant exposed the greater saphenous vein just above the left knee and endoscopically harvested up to near the groin using a stab incision proximally with ligation and division. It was prepared for use as a graft and the port site was closed in layers of subcutaneous and subcuticular Vicryl. A median sternotomy was performed. The left internal mammary artery was exposed and harvested as a skeletonized in-situ graft to the level of the xiphoid and beyond the level of the subclavian vein through an extrapleural exposure. The patient was heparinized and the mammary was ligated and divided distally. There was good flow through the mammary and it dilated nicely when instilled intraluminally with papaverine solution. The mammary bed was inspected for hemostasis and the medial reflections of the pleura were mobilized. The CHENTE retractor was replaced with a Cooper retractor. The pericardium was opened and marsupialized. The aorta was palpated and was soft. The heart was rather large and the RV was noted to be somewhat distended and poorly contractile with a hemorrhagic band anteriorly along the diaphragmatic edge. The pericardial reflection was taken down to allow for placement of a double concentric pursestring of 2-0 Ethibond just beyond it to allow for adequate exposure of the ascending aorta. A single pursestring was placed in the right atrial appendage. Aortic and venous cannulae were inserted and secured by their pursestrings. Cardiopulmonary bypass was instituted and the patient was systemically cooled. The plane between the aorta and pulmonary artery was developed. A longitudinal slit was made in the pericardium anterior to the left phrenic nerve, through which the mammary could be passed. The heart was examined. The vessels to be bypassed were identified. An aortic cross-clamp was applied and cardioplegia was administered through an aortic root needle. When arrest has been achieved, attention was first turned to the PDA. The inferior margin of the heart did not get cool as the remainder of the heart, it was elected to use saphenous vein to first graft the PDA. This was done proximally just beyond the point where the distal right coronary and its initial branches became soft. Once the anastomosis was completed and tested with cold cardioplegia, additional cardioplegia was administered through the root needle and through that graft, and about 200 mL of additional cardioplegia had been administered. Attention was then turned to the circumflex system. The second obtuse marginal appeared to be the largest of the distal arborization. It was opened with a [place] blade and [place] scissors. The proximal end of the radial artery was anastomosed to it end-to-side with running 7-0 Prolene and tested. The second diagonal was identified and opened. The mammary appeared to lie well for a sequential grafting technique. Using the mammary to the 2nd diagonal and distal LAD, a longitudinal arteriotomy was made in the corresponding location in the mammary and a [id number] anastomosis was constructed from it to the second diagonal, because of the pump blood flowed through the diagonal when testing the anastomosis and repairing a small leak, an additional 100 mL of cardioplegia was administered antegrade and then the distal LAD was opened. The distal mammary was trimmed to length and spatulated and anastomosed there end-to-side with running 7-0 Prolene. The aortic cross-clamp was replaced with a partial occluding clamp and an aortotomy was made in the ascending aorta with a scalpel and punch, incorporating the root needle site. The PDA graft was brought along the right side of the heart and anastomosed to that aortotomy with a running 6-0 Prolene suture. The graft was allowed to back bleed and distended somewhat and then a venotomy was made in the doyle of the proximal anastomosis with an 11 blade scalpel and [place] scissors. The radial artery graft to the OM was trimmed to length and spatulated and anastomosed there end-to-side with running 7-0 Prolene. Prior to securing that suture line, the radial artery was allowed to back bleed. The partial occluding clamp was removed and the vein graft was de-aired. The anastomoses were inspected for hemostasis. The posterior pericardial drain was brought out through a separate incision and secured with suture. Right atrial and right ventricular temporary epicardial pacing wires were placed. The patient had already been loaded with Primacor on pump, with the use of a Levophed drip, the patient was then from cardiopulmonary bypass. Aortic and venous cannulae were removed and the pursestring secured. Protamine was administered. When hemostasis was adequate, an anterior mediastinal drain was placed. Because of the size of the heart and the tenseness of the pericardium, it was not feasible to effect complete pericardial closure. The mediastinal fat was tacked back together to cover the aorta and the proximal portions of the vein grafts and the inferomedial aspects of the pericardium were loosely tacked together at the diaphragmatic margin to minimize the pericardial retraction. The cut surfaces of the sternum were treated with platelet rich GPS and vancomycin paste and then the sternum was reapproximated with #7 stainless steel wires. The fascia was closed over the wires with Vicryl. The soft tissues were irrigated and treated with platelet poor GPS. The fascia was closed over the wires with running #1 Vicryl. The subcutaneous tissue was closed with running 2-0 Vicryl and the skin was closed with running 3-0 Vicryl subcuticular suture. Dermabond and dressings were applied to the wounds. Because of intermittent dampening of the femoral arterial line tracing, the anesthesiologist postprocedure place a right radial arterial line, and the patient was then transported to the intensive care unit in stable condition. Job ID: [id number]
[2020-04-05 21:47] LABS: Hemoglobin 11.3 g/dL (14.0-18.0)
[2020-04-05 21:57] LABS: Potassium 3.8 mmol/L (3.5-5.1)
[2020-04-05 22:31] LABS: Actual Bicarbonate (HCO3a) 20.9 mEq/L (22-28); Base Excess (BEa) -4.1 mEq/L (-2.0 to +3.0); CO2 Tension 37.7 mmHg (35.0-45.0); Calcium, Ionized (arterial) 1.08 mmol/L (1.12-1.30); Carboxyhemoglobin (COHb) 0.2 gm% (0.0-3.0); Hemoglobin (Hb) 11.5 g/dL (14.0-18.0); O2 Tension (PaO2), arterial 145.5 mmHg (80.0-100.0); Potassium - ABG Lab 3.63 mmol/L (3.70-5.30); pH, Arterial 7.36 (7.35-7.45)
[2020-04-05 22:32] LABS: ALV-art Gradient 92.575 mmHg (0-20)
[2020-04-05] MEDS: HYDROcodone/Acetaminophen 5/325 mg Tablet PO PRN (23:02)
[2020-04-05] MEDS: Docusate 100 MG CAP PO SCH (23:09)
[2020-04-05] MEDS: Atorvastatin Calcium 40 MG TAB PO SCH (23:09)
--- NOTE | 2020-04-06 00:32 | CON ---
DATE OF CONSULTATION: HISTORY OF PRESENT ILLNESS: Rod Avila is a 59-year-old gentleman post CABG in the ICU. At 4 o'clock, he was hypotensive. Emergency blood gas obtained showed a pO2 of 238, pCO2 of 27, pH 7.44. He has an endotracheal tube in the right mainstem bronchus as a pullback. He has received some volume as well as started on Levophed for cardiovascular surgery. Pulmonary is going to see while in the ICU. The patient was here on April 02 with transfer from [place], [place] with chest pain from acute myocardial infarction was taken to cardiac cardiac cath lab radiology technologist. Review the cardiology's note. Found to have depressed EF of about 30%, though the surgeon tells me that it may be less. PAST MEDICAL HISTORY: Pertinent for coronary artery disease, previous stenting. PAST SURGICAL HISTORY: Unknown. CHRONIC MEDICATIONS: None. SOCIAL HISTORY: Apparently minimal tobacco and alcohol. PHYSICAL EXAMINATION: GENERAL: He is presently intubated in the vent. VITAL SIGNS: His blood pressure now is 140/80, pulse 67, sats 100%, respiratory rate 18. He is sedated. CHEST: Decreased breath sounds. No wheezing. CARDIAC: Normal S1, S2. No gallops. ABDOMEN: Soft. LABORATORY DATA: White count 15,000, H and H 12 and 37, platelet count is 136. X-ray shows as noted tube in the left mainstem bronchus pullback. His chemistry profile shows renal function normal. Blood sugar slightly elevated. Troponin was 235. BNP was 190, though his EF was decreased. Thyroid function was normal. Cholesterol was only 150. ASSESSMENT: Status post cath. Acute coronary syndrome with depressed ejection fraction. PLAN: Pulmonary follow in the ICU. Wean per protocol. I will adjust his vent. Repeat blood gas is not warranted. He is already on pressors as per Cardiology. Pulmonary will follow. Baseline cortisol level has been ordered. One-half hour of critical time. Job ID: [id number]
[2020-04-06] MEDS: Ketorolac Tromethamine 30 MG/ML VIAL IVP SCH ×2 (03:13→11:46)
[2020-04-06] MEDS: HYDROcodone/Acetaminophen 5/325 mg Tablet PO PRN ×6 (03:13→21:26)
[2020-04-06] MEDS: Insulin Regular 300 UNITS/3 ML VIAL SC PRN ×2 (03:48→18:15)
[2020-04-06 04:23] LABS: #Monocytes 0.9 thou/uL (0.11-0.59); #Neutrophils 7.4 thou/uL (1.40-6.50); %Basophils 0.1 % (0.0-1.0); %Lymphocytes 10.3 % (21.0-51.0); %Monocytes 9.4 % (0.0-10.0); %Neutrophils 80.2 % (42.0-75.0); Hemoglobin 9.9 g/dL (14.0-18.0); Mean Corpuscular HGB CONC 32.9 g/dL (32.0-36.0); Mean Corpuscular Hemoglobin 30.7 pg (27.0-31.0); Mean Corpuscular Volume 93.1 fL (78.0-98.0); Mean Platelet Volume 7.1 fL (7.4-10.4); Platelet Count 157 thou/uL (130-400); RBC Distribution Width 12.9 % (11.5-14.5); Red Blood Cell (RBC) Count 3.22 mill/uL (4.70-6.10); White Blood Cell (WBC) Count 9.3 thou/uL (4.8-10.8)
[2020-04-06 04:39] LABS: Anion Gap 15 mmol/L (10-20); BUN (Urea Nitrogen) 14 mg/dL (8.4-25.7); Calc. Creatinine Clearance 105 mL/min (70-130); Calcium 7.8 mg/dL (7.8-10.44); Carbon Dioxide 21 mmol/L (22-29); Chloride 112 mmol/L (98-107); Estimated GFR-MDRD Greater than 90; Glucose 147 mg/dL (70-105); Potassium 4.2 mmol/L (3.5-5.1); Sodium 144 mmol/L (136-145)
[2020-04-06] MEDS: Sodium Chloride 0.9% 1,000 ML IV SCH ×2 (05:22→21:20)
[2020-04-06] MEDS: Milrinone Lactate/D5W 20 MG in Premix Bag 1 BAG IV SCH (05:46)
--- NOTE | 2020-04-06 07:57 | RAD ---
PORTABLE CHEST: Date: 04/06/2020 HISTORY: Postop open heart surgery. COMPARISON: Prior day's exam. FINDINGS: Endotracheal tube has been removed. Left subclavian line is unchanged in position. Heart size is enla rged. Some atelectatic changes are seen in the lung bases. IMPRESSION: Interval removal of the endotracheal tube. Otherwise essentially stable chest. POS: OFF
[2020-04-06] MEDS: Famotidine/PF 20 mg/2ml Vial SLOW IVP SCH ×2 (09:16→19:33)
[2020-04-06] MEDS: Aspirin 325 MG TAB PO SCH (09:16)
[2020-04-06] MEDS: Docusate 100 MG CAP PO SCH ×2 (09:16→19:33)
--- NOTE | 2020-04-06 09:32 | PRG ---
DATE OF SERVICE: 04/06/2020 SUBJECTIVE: Rod Avila is a 59-year-old gentleman, who remains extubated per protocol. OBJECTIVE: VITAL SIGNS: Blood pressure is still low this morning. His pulse is 99, respiratory rate , sats 100% on 2 L, blood pressure 90/60, afebrile, pulse 60. CHEST: No wheezing. No crackles. CARDIAC: Normal S1, S2. . LABORATORY DATA: H and H are 9 and 27, platelet count is normal. His lytes are normal. Glucose 206. IMPRESSION: Respiratory failure, status post cardiomyopathy, hypertension, probably relative adrenal insufficiency. Low-dose hydrocortisone is initiated until he get his blood pressure back to normal. Otherwise, continue neb treatments, supportive care, PT. He was started on some inotrope milrinone last night. We will follow. Job ID: [id number]
[2020-04-06] MEDS: Hydrocortisone Sod Succ/PF 100 mg/2 ml Vial IVP SCH ×3 (11:54→23:40)
--- NOTE | 2020-04-06 17:04 | PDOC.CPN ---
- Subjective Date: 04/06/20 Time: 17:02 Interval history: He is doing well. He still needing levophed and milrinone but is being weaned off. Soreness but no chest pain. - Review of Systems General: denies: fever/chills, weight/appetite/sleep changes, night sweats, fatigue Respiratory: denies: cough, congestion, shortness of breath, exercise intolerance Cardiovascular: denies: chest pain, palpitation, edema, paroxysmal nocturnal dyspnea, orthopnea Gastrointestinal: denies: nausea, vomiting, diarrhea, constipation, abd pain, GI bleeding Musculoskeletal: reports: pain. denies: tenderness, stiffness, swelling, arthritis/arthralgias Neurological: denies: numbness, syncope, seizure, weakness - Objective Allergies/Adverse Reactions: Allergies Allergy/AdvReac Type Severity Reaction Status Date / Time No Known Allergies Allergy Unverified 04/02/20 17:30 Visit Medications: Current Medications Acetaminophen (Acetaminophen 325 Mg Tab) 650 mg PO Q6H PRN PRN Reason: Headache/Fever Or Mild Pain Last Admin: 04/05/20 23:03 Dose: 650 mg Documented by: Hydrocodone Bitart/Acetaminophen (Hydrocodone/Acetaminophen 5/325 Mg Tablet) 1 tab PO Q4H PRN PRN Reason: Moderate Pain (4-6) Last Admin: 04/06/20 11:49 Dose: 1 tab Documented by: Hydrocodone Bitart/Acetaminophen (Hydrocodone/Acetaminophen 5/325 Mg Tablet) 2 tab PO Q4H PRN PRN Reason: Severe Pain (7-10) Last Admin: 04/06/20 16:59 Dose: 2 tab Documented by: Al Hydroxide/Mg Hydroxide (Mag-Al 1200 Mg/1200 Mg/30 Ml Udcup) 30 ml PO Q4H PRN PRN Reason: Indigestion Albuterol/Ipratropium (Ipratropium/Albuterol Sulfate 3 Ml Neb) 3 ml NEB [id number] PRN PRN Reason: SOB Aspirin (Aspirin 325 Mg Tab) 325 mg PO DAILY [facility] Last Admin: 04/06/20 09:16 Dose: 325 mg Documented by: Atorvastatin Calcium (Atorvastatin Calcium 40 Mg Tab) 40 mg PO HS [facility] Last Admin: 04/05/20 23:09 Dose: 40 mg Documented by: Bisacodyl (Bisacodyl 5 Mg Tab) 10 mg PO Q12H PRN PRN Reason: Constipation Bisacodyl (Bisacodyl 10 Mg Supp) 10 mg VT Q12H PRN PRN Reason: Constipation Dextrose/Water (Dextrose 50% Abboject 50 Ml Syringe) 25 gm SLOW IVP PRN PRN PRN Reason: PER HYPOGLYCEMIC PROTOCOL Docusate Sodium (Docusate 100 Mg Cap) 100 mg PO BID [facility] Last Admin: 04/06/20 09:16 Dose: 100 mg Documented by: Famotidine (Famotidine/Pf 20 Mg/2ml Vial) 20 mg SLOW IVP Q12HR [facility] Last Admin: 04/06/20 09:16 Dose: 20 mg Documented by: Fentanyl (Fentanyl 100 Mcg/2 Ml Vial) 25 mcg SLOW IVP Q2H PRN PRN Reason: Moderate Pain (4-6) Stop: 04/07/20 09:57 Last Admin: 04/06/20 00:43 Dose: 25 mcg Documented by: Fentanyl (Fentanyl 100 Mcg/2 Ml Vial) 50 mcg SLOW IVP Q2H PRN PRN Reason: Severe Pain (7-10) Stop: 04/07/20 09:57 Glucagon (Glucagon 1 Mg/Ml Vial) 1 mg SC PRN PRN PRN Reason: PER HYPOGLYCEMIC PROTOCOL Guaifenesin/Dextromethorphan (Guaifenesin Dm 100-10/5 Ml Udcup) 15 ml PO Q4H PRN PRN Reason: Cough Hydralazine HCl (Hydralazine 20 Mg/Ml Vial) 10 mg SLOW IVP Q6H PRN PRN Reason: To Maintain SBP< 140mmHG Hydrocortisone Sodium Succinate (Hydrocortisone Sod Succ/Pf 100 Mg/2 Ml Vial) 25 mg IVP Q6HR [facility] Last Admin: 04/06/20 11:54 Dose: 25 mg Documented by: Nicardipine HCl 25 mg/ Sodium (Chloride) 250 mls @ 0 mls/hr IVPB INF PRN; Protocol PRN Reason: To Maintain SBP< 140mmHG Norepinephrine Bitartrate (Levophed) 250 mls @ 0 mls/hr IVPB PRN PRN; Protocol PRN Reason: To maintain SBP > 90 mmHG Last Admin: 04/06/20 09:15 Dose: 250 mls Documented by: Nitroglycerin/Dextrose (Nitroglycerin 50 Mg/250 Ml Bot) 250 mls @ 0 mls/hr IVPB PRN PRN; Protocol PRN Reason: To Maintain SBP< 140mmHG Sodium Chloride (Normal Saline 0.9%) 1,000 mls @ 75 mls/hr IV .[id number] JEREMY Last Admin: 04/06/20 05:22 Dose: 1,000 mls Documented by: Insulin Human Regular 100 (units/ Sodium Chloride) 101 mls @ 0 mls/hr IVPB INF JEREMY; Protocol Dextrose/Water (D5w) 1,000 mls @ 0 mls/hr IV INF PRN PRN Reason: PRN HYPOGLYCEMIC PROTOCOL Milrinone Lactate/Dextrose 20 (mg/ Device) 100 mls @ 7.346 mls/hr IV INF JEREMY; Protocol Last Admin: 04/06/20 05:46 Dose: 100 mls Documented by: Insulin Human Regular (Insulin Regular 300 Units/3 Ml Vial) 0 units SC Q4H PRN; Protocol PRN Reason: POST OP SLIDING SCALE Last Admin: 04/06/20 03:48 Dose: 3 unit Documented by: Morphine Sulfate (Morphine 2 Mg/Ml Vial) 2 mg SLOW IVP Q15MIN PRN PRN Reason: Severe Pain (7-10) Ondansetron HCl (Ondansetron Pf 4 Mg/2 Ml Vial) 4 mg IVP Q6H PRN PRN Reason: Nausea/Vomiting Last Admin: 04/05/20 23:03 Dose: 4 mg Documented by: Potassium Chloride (Potassium Chloride 20 Meq/100 Ml Premix Bag) 20 meq IVPB PRN PRN PRN Reason: K level </= 4.0 Last Admin: 04/05/20 23:18 Dose: 20 meq Documented by: Promethazine HCl (Promethazine Hcl 25 Mg/Ml Vial) 6.25 mg IM Q4H PRN PRN Reason: Nausea/Vomiting Sodium Chloride (Flush - Normal Saline 10 Ml Syringe) 10 ml IVF Q12HR JEREMY Last Admin: 04/06/20 09:16 Dose: 10 ml Documented by: Vital Signs & Weight: Vital Signs Temp Pulse Resp BP Pulse Ox 04/06/20 12:00 97.6 F 04/06/20 09:00 97 17 120/59 L 04/06/20 08:00 97.8 F 99 24 H 118/55 L 04/06/20 07:50 100 04/06/20 07:48 100 04/06/20 07:00 99 24 H 115/54 L 04/06/20 06:00 102 H 26 H 99/65 04/06/20 05:30 108 H 26 H 111/54 L Weight 145 lb 11.609 oz - Physical Exam General: alert & oriented x3 HEENT: mucus membranes moist Neck: supple neck Cardiac: regular rate and rhythm Lungs: clear to auscultation Neuro: grossly intact Abdomen: active bowel sounds Extremities: 1+ LE edema Skin: clear - Labs Result Diagrams: 04/06/20 03:45 04/06/20 03:45 Troponin/CKMB CK-MB (CK-2) 27.1 ng/mL (0-6.6) H* 04/03/20 12:34 Troponin I 23.347 ng/mL (< 0.028) H* 04/03/20 12:34 - Telemetry Sinus rhythms and dysrhythmias: sinus rhythm - Assessment/Plan Assessment/Plan: 1. Inferior STEMI, late presentation 2. Multivessel CAD. 3. Ischemic cardiomyopathy 4. S/P CABG PLAN: - ASA statin for life. - BB and ACEI once more stable if BP allows. - PT once off pressors/innotropes.
[2020-04-06] MEDS: Atorvastatin Calcium 40 MG TAB PO SCH (19:33)
[2020-04-07] MEDS: HYDROcodone/Acetaminophen 5/325 mg Tablet PO PRN ×3 (03:34→21:00)
[2020-04-07 04:54] LABS: #Lymphocytes 2.6 thou/uL (1.20-3.40); #Monocytes 0.9 thou/uL (0.11-0.59); %Basophils 0.4 % (0.0-1.0); %Eosinophils 0.4 % (0.0-10.0); %Lymphocytes 24.4 % (21.0-51.0); %Monocytes 8.9 % (0.0-10.0); Hemoglobin 9.5 g/dL (14.0-18.0); Mean Corpuscular HGB CONC 33.4 g/dL (32.0-36.0); Mean Corpuscular Hemoglobin 31.5 pg (27.0-31.0); Mean Corpuscular Volume 94.2 fL (78.0-98.0); Mean Platelet Volume 7.5 fL (7.4-10.4); Platelet Count 127 thou/uL (130-400); RBC Distribution Width 13.3 % (11.5-14.5); Red Blood Cell (RBC) Count 3.01 mill/uL (4.70-6.10); White Blood Cell (WBC) Count 10.6 thou/uL (4.8-10.8)
[2020-04-07 05:16] LABS: Anion Gap 10 mmol/L (10-20); BUN (Urea Nitrogen) 20 mg/dL (8.4-25.7); Calc. Creatinine Clearance 108 mL/min (70-130); Calcium 8.3 mg/dL (7.8-10.44); Carbon Dioxide 26 mmol/L (22-29); Chloride 107 mmol/L (98-107); Estimated GFR-MDRD Greater than 90; Glucose 136 mg/dL (70-105); Potassium 4.3 mmol/L (3.5-5.1); Sodium 139 mmol/L (136-145)
[2020-04-07] MEDS: Hydrocortisone Sod Succ/PF 100 mg/2 ml Vial IVP SCH (06:16)
--- NOTE | 2020-04-07 08:06 | RAD ---
EXAM: CHEST ONE VIEW HISTORY: Post open heart surgery. COMPARISON: The 2019 FINDINGS: Left-sided vascular catheter remains in place. Mediastinal drains appear to have been removed. Postop erative changes related to CABG are again seen. Cardiac silhouette is mildly enlarged. There is increased density again seen at the left lung base probably attributable to atelectasis. Right lung i s clear. No pneumothorax is seen. There is slight blunting of the left lateral costophrenic angle which may represent tiny left pleural effusion. No other interval change. IMPRESSION: 1. Evidence of CABG. 2. Atelectasis left lung base with tiny left pleural effusion. 3. Mild cardiomegaly.
--- NOTE | 2020-04-07 08:14 | EKG ---
Test Reason : Blood Pressure : / mmHG Vent. Rate : 084 BPM Atrial Rate : 084 BPM P-R Int : 160 ms QRS Dur : 110 ms QT Int : 386 ms P-R-T Axes : 049 -36 -11 degrees QTc Int : 456 ms Normal sinus rhythm Left axis deviation Possible Lateral infarct , age undetermined Inferior infarct , possibly acute ACUTE SC / STEMI Consider right ventricular involvement in acute inferior infarct Abnormal ECG Confirmed by SYDNI HYLTON (2) on 04/07/2020 8:14:16 AM Referred By: CHARISSE Confirmed By:SYDNI HYLTON
[2020-04-07] MEDS: Docusate 100 MG CAP PO SCH ×2 (08:30→21:00)
[2020-04-07] MEDS: Famotidine/PF 20 mg/2ml Vial SLOW IVP SCH (08:30)
[2020-04-07] MEDS: Aspirin 325 MG TAB PO SCH (08:30)
[2020-04-07] MEDS: Sodium Chloride 0.9% 1,000 ML IV SCH (08:42)
--- NOTE | 2020-04-07 09:26 | PRG ---
DATE OF SERVICE: 04/07/2020 SUBJECTIVE: This morning, he is awake, alert, and responsive. He is sitting in the chair. OBJECTIVE: VITAL SIGNS: Blood pressure improved 121/84, temperature 98, pulse 100, respirations 18, and saturations . CHEST: No wheezing. No crackles. CARDIAC: Normal S1 and S2. No gallops. ABDOMEN: No masses. LABORATORY DATA: X-ray looks stable. Questionable left pleural effusion. 1. . 2. Relative adrenal insufficiency. 3. Status post coronary artery bypass grafting. The patient will be transferred to telemetry. Continue stress dose steroids for several more days. We will follow. Job ID: [id number]
[2020-04-07] MEDS ORDERED: Mag-Al 1200 mg/1200 mg/30 ML UDCUP PO PRN (10:04)
[2020-04-07] MEDS ORDERED: Mineral Oil ENEMA PR PRN (10:04)
[2020-04-07] MEDS ORDERED: Bisacodyl 5 MG TAB PO PRN (10:04)
[2020-04-07] MEDS ORDERED: Bisacodyl 10 MG SUPP PR PRN (10:04)
[2020-04-07] MEDS ORDERED: diphenhydrAMINE 25 MG CAP PO PRN (10:04)
[2020-04-07] MEDS ORDERED: Metoprolol Tartrate 25 MG TAB PO SCH (10:15)
[2020-04-07] MEDS ORDERED: Furosemide 40 MG TAB PO SCH (10:15)
[2020-04-07] MEDS: Ketorolac Tromethamine 30 MG/ML VIAL IVP SCH ×3 (13:45→23:23)
--- NOTE | 2020-04-07 16:22 | PDOC.CPN ---
- Subjective Date: 04/07/20 Time: 12:00 Interval history: He is doing well. He has weaned off all inotropes and pressors. Passing gas. - Review of Systems General: denies: fever/chills, weight/appetite/sleep changes, night sweats, fatigue Respiratory: denies: cough, congestion, shortness of breath, exercise intolerance Cardiovascular: denies: chest pain, palpitation, edema, paroxysmal nocturnal dyspnea, orthopnea Gastrointestinal: denies: nausea, vomiting, diarrhea, constipation, abd pain, GI bleeding Musculoskeletal: denies: pain, tenderness, stiffness, swelling, arthritis/arthralgias Neurological: denies: numbness, syncope, seizure, weakness - Objective Allergies/Adverse Reactions: Allergies Allergy/AdvReac Type Severity Reaction Status Date / Time No Known Allergies Allergy Unverified 04/02/20 17:30 Visit Medications: Current Medications Hydrocodone Bitart/Acetaminophen (Hydrocodone/Acetaminophen 5/325 Mg Tablet) 1 tab PO Q4H PRN PRN Reason: Moderate Pain (4-6) Last Admin: 04/07/20 03:34 Dose: 1 tab Documented by: Hydrocodone Bitart/Acetaminophen (Hydrocodone/Acetaminophen 5/325 Mg Tablet) 2 tab PO Q4H PRN PRN Reason: Severe Pain (7-10) Last Admin: 04/07/20 08:32 Dose: 2 tab Documented by: Al Hydroxide/Mg Hydroxide (Mag-Al 1200 Mg/1200 Mg/30 Ml Udcup) 30 ml PO Q4H PRN PRN Reason: Indigestion Albuterol/Ipratropium (Ipratropium/Albuterol Sulfate 3 Ml Neb) 3 ml NEB [id number] PRN PRN Reason: SOB Aspirin (Aspirin 325 Mg Enteric Coated Tablet) 325 mg PO DAILY [facility] Atorvastatin Calcium (Atorvastatin Calcium 40 Mg Tab) 40 mg PO HS [facility] Last Admin: 04/06/20 19:33 Dose: 40 mg Documented by: Bisacodyl (Bisacodyl 5 Mg Tab) 10 mg PO Q12H PRN PRN Reason: Constipation Bisacodyl (Bisacodyl 10 Mg Supp) 10 mg CA Q12H PRN PRN Reason: Constipation Diphenhydramine HCl (Diphenhydramine 25 Mg Cap) 25 mg PO Q6H PRN PRN Reason: Itching & Insomnia or Lior Kyler Docusate Sodium (Docusate 100 Mg Cap) 100 mg PO BID [facility] Last Admin: 04/07/20 08:30 Dose: 100 mg Documented by: Furosemide (Furosemide 40 Mg Tab) 40 mg PO DAILY [facility] Guaifenesin/Dextromethorphan (Guaifenesin Dm 100-10/5 Ml Udcup) 15 ml PO Q4H PRN PRN Reason: Cough Ketorolac Tromethamine (Ketorolac Tromethamine 30 Mg/Ml Vial) 30 mg IVP Q6HR [facility] Stop: 04/08/20 06:01 Last Admin: 04/07/20 13:45 Dose: 30 mg Documented by: Metoprolol Tartrate (Metoprolol Tartrate 25 Mg Tab) 12.5 mg PO BID [facility] Mineral Oil (Mineral Oil Enema) 133 ml CA DAILYPRN PRN PRN Reason: Constipation Nitroglycerin (Nitroglycerin 0.4 Mg Tab (25 Tab Bottle)) 0.4 mg SL Q5MIN PRN PRN Reason: Chest Pain Ondansetron HCl (Ondansetron Pf 4 Mg/2 Ml Vial) 4 mg IVP Q6H PRN PRN Reason: Nausea/Vomiting Last Admin: 04/05/20 23:03 Dose: 4 mg Documented by: Potassium Chloride (Potassium Chloride 20 Meq Tab) 20 meq PO BID[facility] Sodium Chloride (Flush - Normal Saline 10 Ml Syringe) 10 ml IVF Q12HR [facility] Last Admin: 04/07/20 08:31 Dose: 10 ml Documented by: Zolpidem Tartrate (Zolpidem Tartrate 5 Mg Tab) 5 mg PO HSPRN PRN PRN Reason: Insomnia Vital Signs & Weight: Vital Signs Temp Pulse Pulse BP BP Pulse Ox 04/07/20 10:42 94 88 104/72 131/88 04/07/20 08:00 98.6 F 04/07/20 07:07 98 04/07/20 07:00 100 04/07/20 05:00 98.2 F Weight 145 lb 1.027 oz - Physical Exam General: alert & oriented x3 HEENT: mucus membranes moist Neck: supple neck Cardiac: regular rate and rhythm Lungs: clear to auscultation Neuro: grossly intact Abdomen: active bowel sounds Extremities: 1+ LE edema Skin: clear Musculoskeletal: no pain - Labs Result Diagrams: 04/07/20 04:00 04/07/20 04:00 Troponin/CKMB CK-MB (CK-2) 27.1 ng/mL (0-6.6) H* 04/03/20 12:34 Troponin I 23.347 ng/mL (< 0.028) H* 04/03/20 12:34 - Telemetry Sinus rhythms and dysrhythmias: sinus rhythm - Assessment/Plan Assessment/Plan: 1. Inferior STEMI, late presentation 2. Multivessel CAD. 3. Ischemic cardiomyopathy 4. S/P CABG PLAN: - ASA statin for life. - On low dose BB. ACEI if BP allows. Currently too kyler. - Advance PT as tolerated. - Will need repeat echo before discharge.
[2020-04-07] MEDS ORDERED: Potassium Chloride 20 MEQ TAB PO SCH (17:00)
[2020-04-07] MEDS: Guaifenesin DM 100-10/5 ML UDCUP PO PRN (17:08)
[2020-04-07] MEDS: Atorvastatin Calcium 40 MG TAB PO SCH (21:00)
[2020-04-07] MEDS: Metoprolol Tartrate 25 MG TAB PO SCH (21:00)
[2020-04-08] MEDS: Ketorolac Tromethamine 30 MG/ML VIAL IVP SCH (05:13)
--- NOTE | 2020-04-08 07:10 | RAD ---
Exam: Chest one view HISTORY:Status post open heart surgery. Comparison: 04/07/2020 FINDINGS: Cardiac silhouette:Cardiomegaly. Stable sternotomy wires. Lines and tubes: Stable left-sided subclavian vascular catheter. Aorta: Unremarkable Pulmonary vessels: Normal Costophrenic angles: Left-sided pleural effusion, unchanged. LUNGS: Persistent opacification the left lung base. Persistently diminished lung volumes. Pneumothorax: None Osseous abnormalities: None IMPRESSION: 1. Findings compatible with recent open heart surgery 2. Pleural and parenchymal changes left lung base. Continued surveillance is recommended.
[2020-04-08] MEDS: Potassium Chloride 20 MEQ TAB PO SCH ×2 (08:34→16:19)
[2020-04-08] MEDS: Furosemide 40 MG TAB PO SCH ×2 (08:34→13:51)
[2020-04-08] MEDS: Metoprolol Tartrate 25 MG TAB PO SCH ×2 (08:35→20:17)
[2020-04-08] MEDS: Metolazone 5 MG TAB PO SCH (08:35)
[2020-04-08] MEDS: Docusate 100 MG CAP PO SCH ×2 (08:35→20:17)
[2020-04-08] MEDS: Aspirin 325 mg Enteric Coated Tablet PO SCH (08:36)
[2020-04-08] MEDS: HYDROcodone/Acetaminophen 5/325 mg Tablet PO PRN ×2 (08:41→13:53)
[2020-04-08] MEDS ORDERED: Furosemide 40 MG TAB PO SCH (09:00)
[2020-04-08 11:24] LABS: #Basophils 0.1 thou/uL (0.0-0.2); #Eosinphils 0.2 thou/uL (0.0-0.7); #Lymphocytes 2.3 thou/uL (1.20-3.40); #Monocytes 0.9 thou/uL (0.11-0.59); #Neutrophils 7.8 thou/uL (1.40-6.50); %Basophils 1.2 % (0.0-1.0); %Eosinophils 1.5 % (0.0-10.0); %Lymphocytes 20.1 % (21.0-51.0); %Monocytes 8.1 % (0.0-10.0); %Neutrophils 69.1 % (42.0-75.0); Hemoglobin 9.5 g/dL (14.0-18.0); Mean Corpuscular HGB CONC 33.1 g/dL (32.0-36.0); Mean Corpuscular Hemoglobin 30.8 pg (27.0-31.0); Mean Corpuscular Volume 92.9 fL (78.0-98.0); Mean Platelet Volume 7.1 fL (7.4-10.4); Platelet Count 145 thou/uL (130-400); RBC Distribution Width 13.3 % (11.5-14.5); Red Blood Cell (RBC) Count 3.07 mill/uL (4.70-6.10); White Blood Cell (WBC) Count 11.3 thou/uL (4.8-10.8)
[2020-04-08 11:45] LABS: Anion Gap 10 mmol/L (10-20); BUN (Urea Nitrogen) 26 mg/dL (8.4-25.7); Calc. Creatinine Clearance 105 mL/min (70-130); Calcium 8.6 mg/dL (7.8-10.44); Carbon Dioxide 29 mmol/L (22-29); Estimated GFR-MDRD Greater than 90; Glucose 122 mg/dL (70-105); Potassium 4.1 mmol/L (3.5-5.1); Sodium 138 mmol/L (136-145)
[2020-04-08] MEDS: Guaifenesin DM 100-10/5 ML UDCUP PO PRN ×2 (11:57→20:26)
[2020-04-08 12:10] LABS: Chloride 101 mmol/L (98-107)
--- NOTE | 2020-04-08 12:43 | PDOC.CPN ---
- Subjective Date: 04/08/20 Time: 12:42 Interval history: He is doing better very day. He continues to pass gas and feels like having a BM today. - Review of Systems General: denies: fever/chills, weight/appetite/sleep changes, night sweats, fatigue Respiratory: denies: cough, congestion, shortness of breath, exercise intolerance Cardiovascular: reports: chest pain. denies: palpitation, edema, paroxysmal nocturnal dyspnea, orthopnea Gastrointestinal: denies: nausea, vomiting, diarrhea, constipation, abd pain, GI bleeding Musculoskeletal: denies: pain, tenderness, stiffness, swelling, arthritis/arthralgias Neurological: denies: numbness, syncope, seizure, weakness - Objective Allergies/Adverse Reactions: Allergies Allergy/AdvReac Type Severity Reaction Status Date / Time No Known Allergies Allergy Unverified 04/02/20 17:30 Visit Medications: Current Medications Hydrocodone Bitart/Acetaminophen (Hydrocodone/Acetaminophen 5/325 Mg Tablet) 1 tab PO Q4H PRN PRN Reason: Moderate Pain (4-6) Last Admin: 04/08/20 08:41 Dose: 1 tab Documented by: Hydrocodone Bitart/Acetaminophen (Hydrocodone/Acetaminophen 5/325 Mg Tablet) 2 tab PO Q4H PRN PRN Reason: Severe Pain (7-10) Last Admin: 04/07/20 08:32 Dose: 2 tab Documented by: Al Hydroxide/Mg Hydroxide (Mag-Al 1200 Mg/1200 Mg/30 Ml Udcup) 30 ml PO Q4H PRN PRN Reason: Indigestion Albuterol/Ipratropium (Ipratropium/Albuterol Sulfate 3 Ml Neb) 3 ml NEB [id number] PRN PRN Reason: SOB Aspirin (Aspirin 325 Mg Enteric Coated Tablet) 325 mg PO DAILY [facility] Last Admin: 04/08/20 08:36 Dose: 325 mg Documented by: Atorvastatin Calcium (Atorvastatin Calcium 40 Mg Tab) 40 mg PO HS [facility] Last Admin: 04/07/20 21:00 Dose: 40 mg Documented by: Bisacodyl (Bisacodyl 5 Mg Tab) 10 mg PO Q12H PRN PRN Reason: Constipation Bisacodyl (Bisacodyl 10 Mg Supp) 10 mg PA Q12H PRN PRN Reason: Constipation Diphenhydramine HCl (Diphenhydramine 25 Mg Cap) 25 mg PO Q6H PRN PRN Reason: Itching & Insomnia or Lior Kyler Docusate Sodium (Docusate 100 Mg Cap) 100 mg PO BID [facility] Last Admin: 04/08/20 08:35 Dose: 100 mg Documented by: Furosemide (Furosemide 40 Mg Tab) 40 mg PO 0900,1400 [facility] Last Admin: 04/08/20 08:34 Dose: 40 mg Documented by: Guaifenesin/Dextromethorphan (Guaifenesin Dm 100-10/5 Ml Udcup) 15 ml PO Q4H PRN PRN Reason: Cough Last Admin: 04/08/20 11:57 Dose: 15 ml Documented by: Metolazone (Metolazone 5 Mg Tab) 10 mg PO 0830 [facility] Stop: 04/09/20 08:31 Last Admin: 04/08/20 08:35 Dose: 10 mg Documented by: Metoprolol Tartrate (Metoprolol Tartrate 25 Mg Tab) 12.5 mg PO BID [facility] Last Admin: 04/08/20 08:35 Dose: 12.5 mg Documented by: Mineral Oil (Mineral Oil Enema) 133 ml [place] DAILYPRN PRN PRN Reason: Constipation Nitroglycerin (Nitroglycerin 0.4 Mg Tab (25 Tab Bottle)) 0.4 mg SL Q5MIN PRN PRN Reason: Chest Pain Ondansetron HCl (Ondansetron Pf 4 Mg/2 Ml Vial) 4 mg IVP Q6H PRN PRN Reason: Nausea/Vomiting Last Admin: 04/05/20 23:03 Dose: 4 mg Documented by: Potassium Chloride (Potassium Chloride 20 Meq Tab) 40 meq PO BID-[facility] Last Admin: 04/08/20 08:34 Dose: 40 meq Documented by: Sodium Chloride (Flush - Normal Saline 10 Ml Syringe) 10 ml IVF Q12HR [facility] Last Admin: 04/08/20 08:36 Dose: 10 ml Documented by: Zolpidem Tartrate (Zolpidem Tartrate 5 Mg Tab) 5 mg PO HSPRN PRN PRN Reason: Insomnia Vital Signs & Weight: Vital Signs Temp Pulse Pulse Pulse Resp BP BP 04/08/20 09:20 110 H 103 H 113/73 96/63 04/08/20 07:50 98.2 F 99 20 04/08/20 07:45 04/08/20 03:24 98.8 F 90 15 BP Pulse Ox Pulse Ox Pulse Ox 04/08/20 09:20 96 92 L 04/08/20 07:50 106/68 94 L 04/08/20 07:45 99 04/08/20 03:24 102/63 99 Weight 150 lb 3.2 oz - Physical Exam General: alert & oriented x3 HEENT: mucus membranes moist Neck: supple neck Cardiac: regular rate and rhythm Lungs: normal breath sounds Neuro: grossly intact Abdomen: active bowel sounds Extremities: no edema Skin: clear Musculoskeletal: no pain - Labs Result Diagrams: 04/08/20 11:15 04/08/20 11:15 Troponin/CKMB CK-MB (CK-2) 27.1 ng/mL (0-6.6) H* 04/03/20 12:34 Troponin I 23.347 ng/mL (< 0.028) H* 04/03/20 12:34 - Telemetry Sinus rhythms and dysrhythmias: sinus rhythm - Assessment/Plan Assessment/Plan: 1. Inferior STEMI, late presentation 2. Multivessel CAD. 3. Ischemic cardiomyopathy 4. S/P CABG PLAN: - ASA statin for life. - Continue low dose BB. BP still too low for ACEI. - Advance PT as tolerated. - Will need repeat echo tomorrow.
[2020-04-08] MEDS: Atorvastatin Calcium 40 MG TAB PO SCH (20:17)
[2020-04-09 04:31] LABS: #Basophils 0.1 thou/uL (0.0-0.2); #Eosinphils 0.4 thou/uL (0.0-0.7); #Lymphocytes 3.3 thou/uL (1.20-3.40); #Neutrophils 7.5 thou/uL (1.40-6.50); %Basophils 0.4 % (0.0-1.0); %Eosinophils 3.5 % (0.0-10.0); %Lymphocytes 26.9 % (21.0-51.0); %Monocytes 7.8 % (0.0-10.0); %Neutrophils 61.4 % (42.0-75.0); Hemoglobin 9.7 g/dL (14.0-18.0); Mean Corpuscular HGB CONC 34.1 g/dL (32.0-36.0); Mean Corpuscular Hemoglobin 31.6 pg (27.0-31.0); Mean Corpuscular Volume 92.7 fL (78.0-98.0); Mean Platelet Volume 7.2 fL (7.4-10.4); Platelet Count 213 thou/uL (130-400); RBC Distribution Width 13.2 % (11.5-14.5); Red Blood Cell (RBC) Count 3.07 mill/uL (4.70-6.10); White Blood Cell (WBC) Count 12.3 thou/uL (4.8-10.8)
[2020-04-09 04:51] LABS: Anion Gap 14 mmol/L (10-20); BUN (Urea Nitrogen) 22 mg/dL (8.4-25.7); Calc. Creatinine Clearance 96 mL/min (70-130); Calcium 8.8 mg/dL (7.8-10.44); Carbon Dioxide 29 mmol/L (22-29); Chloride 94 mmol/L (98-107); Estimated GFR-MDRD Greater than 90; Glucose 109 mg/dL (70-105); Potassium 3.7 mmol/L (3.5-5.1); Sodium 133 mmol/L (136-145)
--- NOTE | 2020-04-09 05:17 | PRG ---
DATE OF SERVICE: 04/08/2020 SUBJECTIVE: Emanuel Avila this morning is awake, alert, and responsive, in no distress. OBJECTIVE: VITAL SIGNS: Temperature 98, pulse 99, respirations 20, sats 94% on room air, and blood pressure 106/68, improved. I's and O's are slightly positive. CHEST: No wheezing. No crackles. CARDIAC: Normal S1 and S2. No gallops. ABDOMEN: No masses. ASSESSMENT: 1. Status post coronary artery bypass grafting . 2. Hypertension, resolved. 3. Cardiomyopathy. PLAN: Stress dose steroids are discontinued. He is tolerating blood pressure. Continue cardiac care. Pulmonary is going to follow at a distance. Call if needed. Job ID: [id number]
--- NOTE | 2020-04-09 07:23 | RAD ---
Exam: Chest one view HISTORY:CABG. Comparison: 04/08/2020 FINDINGS: Cardiac silhouette:Cardiomegaly. Stable sternotomy wires. Lines and tubes: Stable left-sided subclavian vascular catheter Aorta: Unremarkable Pulmonary vessels: Normal Costophrenic angles: Left-sided and right-sided pleural effusions have developed since the previous e xam. LUNGS: Parenchymal changes left lung base likely represents atelectasis. Pneumothorax: None Osseous abnormalities: None IMPRESSION: 1. Interval development of small bilateral effusions. 2. Left lower lobe opacity likely representing atelectasis.
[2020-04-09] MEDS: Aspirin 325 mg Enteric Coated Tablet PO SCH (09:05)
[2020-04-09] MEDS: Metoprolol Tartrate 25 MG TAB PO SCH ×2 (09:05→19:58)
[2020-04-09] MEDS: Docusate 100 MG CAP PO SCH ×2 (09:05→19:59)
[2020-04-09] MEDS: Potassium Chloride 20 MEQ TAB PO SCH ×2 (09:05→18:03)
[2020-04-09] MEDS: Metolazone 5 MG TAB PO SCH (09:06)
[2020-04-09] MEDS: HYDROcodone/Acetaminophen 5/325 mg Tablet PO PRN ×2 (09:06→19:55)
[2020-04-09] MEDS: Furosemide 40 MG TAB PO SCH ×2 (09:07→15:09)
[2020-04-09] MEDS: Atorvastatin Calcium 40 MG TAB PO SCH (19:58)
[2020-04-10 05:19] LABS: Anion Gap 15 mmol/L (10-20); BUN (Urea Nitrogen) 23 mg/dL (8.4-25.7); Calc. Creatinine Clearance 97 mL/min (70-130); Carbon Dioxide 30 mmol/L (22-29); Chloride 92 mmol/L (98-107); Estimated GFR-MDRD Greater than 90; Glucose 118 mg/dL (70-105); Potassium 3.9 mmol/L (3.5-5.1); Sodium 133 mmol/L (136-145)
--- NOTE | 2020-04-10 06:43 | PRG ---
DATE OF SERVICE: 04/10/2020 The patient is postoperative day #5 from coronary bypass grafting following an inferior and right ventricular infarction. Most recent echocardiogram demonstrates an ejection fraction of 30% to 35%. Laboratory values today include a creatinine of 0.77 with a potassium of 3.9, both of which are stable with ongoing diuresis. He has been in sinus rhythm, and blood pressure has been about 100. Medications currently include: 1. Aspirin. 2. Statin. 3. Lasix. 4. Metoprolol. 5. Spironolactone. The patient has walked the halls about 4 to 5 times yesterday. His exam today, his weight is 139 pounds which is down somewhat from recorded weights of 145. His lungs are clear. His chest incision looks good. His left leg incision looks good, and his left arm incision is clean and dry. Continue current management and anticipate discharge when LifeVest has been approved. Job ID: [id number]
[2020-04-10] MEDS: Aspirin 325 mg Enteric Coated Tablet PO SCH (08:09)
[2020-04-10] MEDS: Docusate 100 MG CAP PO SCH ×2 (08:09→21:29)
[2020-04-10] MEDS: Metoprolol Tartrate 25 MG TAB PO SCH ×2 (08:09→21:28)
[2020-04-10] MEDS: Potassium Chloride 20 MEQ TAB PO SCH (08:09)
[2020-04-10] MEDS: Furosemide 40 MG TAB PO SCH (08:09)
[2020-04-10] MEDS: Spironolactone 25 MG TAB PO SCH (08:09)
[2020-04-10] MEDS: Lisinopril 2.5 MG TAB PO SCH (09:40)
[2020-04-10] MEDS: Nitroglycerin 0.4 MG TAB (25 Tab Bottle) SL PRN ×2 (13:42→13:59)
[2020-04-10] MEDS ORDERED: Morphine 2 MG/ML VIAL SLOW IVP SCH (14:19)
[2020-04-10] MEDS ORDERED: Ketorolac Tromethamine 30 MG/ML VIAL IVP SCH (15:45)
[2020-04-10] MEDS: HYDROcodone/Acetaminophen 5/325 mg Tablet PO PRN (21:27)
[2020-04-10] MEDS: Atorvastatin Calcium 40 MG TAB PO SCH (21:28)
[2020-04-10] MEDS: Zolpidem Tartrate 5 MG TAB PO PRN (21:29)
[2020-04-11] MEDS: Lisinopril 2.5 MG TAB PO SCH (08:41)
[2020-04-11] MEDS: Ibuprofen 600 MG TAB PO SCH ×3 (08:41→16:56)
[2020-04-11] MEDS: Spironolactone 25 MG TAB PO SCH (08:42)
[2020-04-11] MEDS: Furosemide 40 MG TAB PO SCH (08:42)
[2020-04-11] MEDS: Docusate 100 MG CAP PO SCH ×2 (08:42→20:37)
[2020-04-11] MEDS: Aspirin 325 mg Enteric Coated Tablet PO SCH (08:42)
[2020-04-11] MEDS: Metoprolol Tartrate 25 MG TAB PO SCH ×2 (08:42→20:37)
[2020-04-11] MEDS: HYDROcodone/Acetaminophen 5/325 mg Tablet PO PRN (18:15)
[2020-04-11] MEDS: Atorvastatin Calcium 40 MG TAB PO SCH (20:37)
[2020-04-11] MEDS: Zolpidem Tartrate 5 MG TAB PO PRN (20:37)
[2020-04-12] MEDS: Ibuprofen 600 MG TAB PO SCH ×2 (08:36→12:21)
[2020-04-12] MEDS: Spironolactone 25 MG TAB PO SCH (08:37)
[2020-04-12] MEDS: Aspirin 325 mg Enteric Coated Tablet PO SCH (08:37)
[2020-04-12] MEDS: Metoprolol Tartrate 25 MG TAB PO SCH (08:37)
[2020-04-12] MEDS: Lisinopril 2.5 MG TAB PO SCH (08:37)
[2020-04-12] MEDS: Furosemide 40 MG TAB PO SCH (08:37)
[2020-04-12] MEDS: Docusate 100 MG CAP PO SCH (08:37)
[2020-04-12 11:56] VITALS: BP 96/59; TEMP 98.6
[2020-04-12] MEDS: HYDROcodone/Acetaminophen 5/325 mg Tablet PO PRN (13:47)
--- NOTE | 2020-04-14 05:22 | PQF ---
CLINICAL DOCUMENTATION CLARIFICATION FORM: Dear DrTita: Terrell Locke Date / Time: 04/14/20 Please exercise your independent, professional judgment in responding to the clarification form. Clinical indicators are provided on the bottom of this form for your review 520 Please check appropriate box(es): [ ] Acute Respiratory Failure [ ] Acute On Chronic Respiratory Failure [ ] Chronic Respiratory Failure [ ] Acute Postoperative Respiratory Failure [ ] Other diagnosis ____not my patient but thanks for sending it to me [ ] Unable to determine Physician Signature: Date/Time: For continuity of documentation, please document condition throughout progress notes and discharge summary. Thank You. To be completed by CDI/Coding staff for physician review: Present Clinical Indicators - Signs / Symptoms / Labs Results and Location in Medical Record [X] ABG: pH 7.44, PCO2 27.9, pO2 238.1. O2 sat 99.2, Base Excess -4.1, hct 37.0, Hgb 12.6 Laboratory 04/05 [X] O2 sat 98%; 99%; 92% Vital signs 04/05 [X] BP 131/78, Pulse 83, Resp 12, Temp 98.9 Vital signs 04/05 [X] Respiratory failure s/p cardiomyopathy PN p1 04/06 Dr Gregorio [X] Chest Xray: Lungs are mildly hypoinflated Chest Xray 04/03 [X] Decreased breath sounds Consult 04/06 Present Risk Factors Results and Location in Medical Record [X] STEMI Consult Dr Darline Loza 04/05 [X] CAD s/p stent Consult Dr Darline Loza 04/05 [X] s/p CABG Consult Dr Darline Loza 04/05 [X] HTN Consult Dr Darline Loza 04/05 Present Treatments Results and Location in Medical Record [X] Mechanical Ventilator Respiratory Panel 04/05 [X] ABG Laboratory 04/05 [X] Duoneb 3 ml Neb MAR 04/05 [X] Pulmo Cunsult Consult Dr Darline Loza 04/05 CDS/Risk And Insurance Manager Signature: Loreta Mcgeesilvia Phone #: ext [phone] Date/Time: 04/14/2020 0512 Acute Respiratory Failure: ABG pH < 7.35 or > 7.45; Decreased oxygen saturation (<90% room air or < 95% on oxygen); PCO2 > 50 mm Hg; PO2 < 60 mm Hg; Labored or rapid respirations ARDS: Dx Criteria [[place] ARDS]: Respiratory symptoms within one week of a known clinical insult (e.g. shock, infection, surgery, trauma) Bilateral opacities in CXR/Chest CT not due to CHF or fluid This is a permanent part of the Medical Record MTDD
--- NOTE | 2020-04-14 19:10 | EKG ---
Test Reason : Blood Pressure : / mmHG Vent. Rate : 080 BPM Atrial Rate : 080 BPM P-R Int : 162 ms QRS Dur : 116 ms QT Int : 410 ms P-R-T Axes : 038 -38 041 degrees QTc Int : 472 ms Normal sinus rhythm Left axis deviation Inferior infarct (cited on or before 02-APR-2020) Abnormal ECG When compared with ECG of 02-APR-2020 16:53, (Unconfirmed) Serial changes of Inferior infarct Present Confirmed by SAMM TURPIN, STita ([id number]) on 04/14/2020 7:10:41 PM Referred By: BYRON Confirmed By:DR. Liliana QUIJANO MD
--- NOTE | 2020-04-14 19:30 | EKG ---
Test Reason : Blood Pressure : / mmHG Vent. Rate : 103 BPM Atrial Rate : 103 BPM P-R Int : 140 ms QRS Dur : 102 ms QT Int : 338 ms P-R-T Axes : 037 -45 023 degrees QTc Int : 442 ms Sinus tachycardia Left axis deviation Inferior infarct , age undetermined Anterolateral infarct , age undetermined Abnormal ECG Confirmed by SAMM TURPIN, DR. Ford ([id number]) on 04/14/2020 7:30:07 PM Referred By: GERARD Confirmed By:DR. Liliana QUIJANO MD
--- NOTE | 2020-04-15 04:31 | PQF ---
CLINICAL DOCUMENTATION CLARIFICATION FORM: Dear : Dago Gregorio Date / Time: 04/15/2020 0430 Please exercise your independent, professional judgment in responding to the clarification form. Clinical indicators are provided on the bottom of this form for your review 520 Please check appropriate box(es): [ ] Acute Respiratory Failure [ ] Acute On Chronic Respiratory Failure [ ] Acute Postoperative Respiratory Failure [ ] Other diagnosis [ ] Unable to determine Physician Signature: Date/Time: For continuity of documentation, please document condition throughout progress notes and discharge summary. Thank You. To be completed by CDI/Coding staff for physician review: Present Clinical Indicators - Signs / Symptoms / Labs Results and Location in Medical Record [X] ABG: pH 7.44, PCO2 27.9, pO2 238.1. O2 sat 99.2, Base Excess -4.1, hct 37.0, Hgb 12.6 Laboratory 04/05 [X] O2 sat 98%; 99%; 92% Vital signs 04/05 [X] BP 131/78, Pulse 83, Resp 12, Temp 98.9 Vital signs 04/05 [X] Respiratory failure s/p cardiomyopathy PN p1 04/06 Dr Gregorio [X] Chest Xray: Lungs are mildly hypoinflated Chest Xray 04/03 [X] Decreased breath sounds Consult 04/06 Present Risk Factors Results and Location in Medical Record [X] STEMI Consult Dr Darline Loza 04/05 [X] CAD s/p stent Consult Dr Darline Loza 04/05 [X] s/p CABG Consult Dr Darline Loza 04/05 [X] HTN Consult Dr Darline Loza 04/05 Present Treatments Results and Location in Medical Record [X] Mechanical Ventilator Respiratory Panel 04/05 [X] ABG Laboratory 04/05 [X] Duoneb 3 ml Neb MAR 04/05 [X] Pulmo Cunsult Consult Dr Darline Loza 04/05 CDS/Director Of Strategic Partnerships Signature: Loreta Fontenot Brenden Phone #: ext [phone] Date/Time: 04/15/20 0430 Acute Respiratory Failure: ABG pH < 7.35 or > 7.45; Decreased oxygen saturation (<90% room air or < 95% on oxygen); PCO2 > 50 mm Hg; PO2 < 60 mm Hg; Labored or rapid respirations ARDS: Dx Criteria [[place] ARDS]: Respiratory symptoms within one week of a known clinical insult (e.g. shock, infection, surgery, trauma) Bilateral opacities in CXR/Chest CT not due to CHF or fluid This is a permanent part of the Medical Record MTDD
== END 2020-04-12 14:25 | disposition home or self-care (01) | DRG 233 ==
LOC: ERS 15:10 → SDC 15:34 → EDBD 20:40 → CCU 20:40 → 2NO 04-07 19:05
PROVIDERS: ADMIT Internal Medicine Cardiovascular Disease; ATTEND Internal Medicine Cardiovascular Disease
PROC: 4A023N7 Measurement of Cardiac Sampling and Pressure, Left Heart, Percutaneous Approach (ICD-10-PCS; 2020-04-02)
PROC: B2111ZZ Fluoroscopy of Multiple Coronary Arteries using Low Osmolar Contrast (ICD-10-PCS; 2020-04-02)
PROC: B2151ZZ Fluoroscopy of Left Heart using Low Osmolar Contrast (ICD-10-PCS; 2020-04-02)
PROC: 02110Z9 Bypass Coronary Artery, Two Arteries from Left Internal Mammary, Open Approach (ICD-10-PCS; principal; 2020-04-05)
PROC: 02100AW Bypass Coronary Artery, One Artery from Aorta with Autologous Arterial Tissue, Open Approach (ICD-10-PCS; 2020-04-05)
PROC: 03BC0ZZ Excision of Left Radial Artery, Open Approach (ICD-10-PCS; 2020-04-05)
PROC: 021009W Bypass Coronary Artery, One Artery from Aorta with Autologous Venous Tissue, Open Approach (ICD-10-PCS; 2020-04-05)
PROC: 06BQ4ZZ Excision of Left Saphenous Vein, Percutaneous Endoscopic Approach (ICD-10-PCS; 2020-04-05)
PROC: 5A1221Z Performance of Cardiac Output, Continuous (ICD-10-PCS; 2020-04-05)
PROC: 5A1935Z Respiratory Ventilation, Less than 24 Consecutive Hours (ICD-10-PCS; 2020-04-05)
DX: I21.19 ST elevation (STEMI) myocardial infarction involving other coronary artery of inferior wall (principal); J96.90 Respiratory failure, unspecified, unspecified whether with hypoxia or hypercapnia; E27.40 Unspecified adrenocortical insufficiency; Z20.828 Contact with and (suspected) exposure to other viral communicable diseases; I25.10 Atherosclerotic heart disease of native coronary artery without angina pectoris; I25.5 Ischemic cardiomyopathy; I21.29 ST elevation (STEMI) myocardial infarction involving other sites; Z78.1 Physical restraint status; Z28.21 Immunization not carried out because of patient refusal; Z79.82 Long term (current) use of aspirin; Z91.14 Patient's other noncompliance with medication regimen; Z95.5 Presence of coronary angioplasty implant and graft
CPT/HCPCS: 36415; 36416; 36430; 71045; 80048; 80053; 80061; 82533; 82553; 82805; 83036; 83690; 83880; 84443; 84484; 85025; 85610; 85730; 86850; 86900; 86901; 93005; 93010; 93306; 93458; 93798; 94002; 94150; 96374; J0690; J1100; J1644; J1720; J1815; J1885; J2001; J2150; J2250; J2260; J2270; J2370; J2405; J2440; J2704; J3010; J3370; J3475; J3480; P9045; Q9967; S0017; S0028; U0002

== ENCOUNTER 2020-04-18 09:41 | Inpatient (IN) | payer SELFPAY ==
[~2020-04-18 09:41] MED LIST changes: +EPINEPHrine 1 MG/10 ML Abboject SYRINGE ONE; +Glycopyrrolate 0.2 MG/ML 5 ML SYRINGE ONE; -Iopamidol 370 76% 100 ML VIAL ONE; +Lidocaine 1% PF 5 ML VIAL ONE; +Metoclopramide HCl 10 MG/2 ML VIAL ONE; +PROPOFOL 200 MG/20 ML VIAL ONE; +Rocuronium Bromide 10 MG/ML (10ML VIAL) ONE; +Succinylcholine 200 MG/10 ml SYRINGE FS ONE
[2020-04-18] MEDS ORDERED: Lidocaine 1% (PF) 30 ML VIAL ONE (09:43)
[2020-04-18] MEDS ORDERED: Fentanyl 100 MCG/2 ML VIAL ONE ×2 (09:44→11:26)
[2020-04-18] MEDS ORDERED: Ondansetron PF 4 MG/2 ML Vial ONE (09:45)
[2020-04-18] MEDS ORDERED: EPINEPHrine 1 MG/10 ML Abboject SYRINGE ONE (09:55)
[2020-04-18] MEDS ORDERED: DOPamine 400 MG/D5W 250 ML 250 ML ONE (10:01)
[2020-04-18 10:09] LABS: INR-International Normal Ratio 1.1; PTT 28.7 sec (22.9-36.1); Prothrombin Time 14.6 sec (12.0-14.7)
--- NOTE | 2020-04-18 10:11 | RAD ---
RADIOGRAPH CHEST 1 VIEW: DATE: 04/18/2020 HISTORY: 59-year-old male with acute chest pain COMPARISON: 04/09/2020 FINDINGS: There are no airspace densities, pulmonary edema, pneumothorax, or cardiomegaly. The lateral costophr enic angles are sharp. The previously demonstrated cardiomegaly has resolved. The left lower lobe atelectasis and left pleural effusion have resolved. The left subclavian central venous catheter has been removed. Sternotomy wires remain. IMPRESSION: No acute cardiopulmonary findings.
[2020-04-18 10:20] LABS: Hemoglobin 8.3 g/dL (14.0-18.0); Mean Corpuscular HGB CONC 32.7 g/dL (32.0-36.0); Mean Corpuscular Hemoglobin 30.1 pg (27.0-31.0); Mean Corpuscular Volume 92.1 fL (78.0-98.0); Platelet Count 531 thou/uL (130-400); RBC Distribution Width 13.6 % (11.5-14.5); Red Blood Cell (RBC) Count 2.75 mill/uL (4.70-6.10); White Blood Cell (WBC) Count 32.4 thou/uL (4.8-10.8)
[2020-04-18 10:25] LABS: ALT (SGPT) 31 U/L (8-55); AST (SGOT) 26 U/L (5-34); Albumin 3.4 g/dL (3.5-5.0); Alkaline Phosphatase 138 U/L (40-110); Anion Gap 19 mmol/L (10-20); BUN (Urea Nitrogen) 54 mg/dL (8.4-25.7); Band 8 % (5-11); Bilirubin, Total 0.4 mg/dL (0.2-1.2); CK (CPK) 40 U/L (30-200); Calc. Creatinine Clearance 0 mL/min (70-130); Calcium 8.4 mg/dL (7.8-10.44); Carbon Dioxide 21 mmol/L (22-29); Chloride 96 mmol/L (98-107); Estimated GFR-MDRD 52; Globulin 3.4 g/dL (2.4-3.5); Glucose 248 mg/dL (70-105); Lymphocytes 7 % (21-51); MDiff Complete? YES; Monocytes 3 % (0-10); Neutrophil 82 % (42-75); Potassium 4.5 mmol/L (3.5-5.1); Protein, Total 6.8 g/dL (6.0-8.3); Sodium 131 mmol/L (136-145)
[2020-04-18] MEDS ORDERED: Protamine Sulfate 50 MG/5 ML VIAL ONE ×2 (10:38→10:52)
[2020-04-18 10:45] LABS: CKMB 0.8 ng/mL (0-6.6)
[2020-04-18] MEDS ORDERED: Pantoprazole 40 MG VIAL ONE (10:58)
[2020-04-18] MEDS ORDERED: Norepinephrine 8 MG/0.9% NS 250 ML ONE (12:04)
[2020-04-18 12:55] LABS: #Eosinphils 0.1 thou/uL (0.0-0.7); #Monocytes 0.8 thou/uL (0.11-0.59); #Neutrophils 24.9 thou/uL (1.40-6.50); %Basophils 0.1 % (0.0-1.0); %Eosinophils 0.4 % (0.0-10.0); %Lymphocytes 3.7 % (21.0-51.0); %Monocytes 2.9 % (0.0-10.0); %Neutrophils 92.9 % (42.0-75.0); Hemoglobin 10.2 g/dL (14.0-18.0); Mean Corpuscular HGB CONC 34.1 g/dL (32.0-36.0); Mean Corpuscular Hemoglobin 31.4 pg (27.0-31.0); Mean Corpuscular Volume 92.2 fL (78.0-98.0); Mean Platelet Volume 6.7 fL (7.4-10.4); Platelet Count 284 thou/uL (130-400); RBC Distribution Width 13.3 % (11.5-14.5); Red Blood Cell (RBC) Count 3.25 mill/uL (4.70-6.10); White Blood Cell (WBC) Count 26.8 thou/uL (4.8-10.8)
[2020-04-18] MEDS ORDERED: Heparin 10,000 UNITS/ 10 ML VIAL ONE (12:56)
[2020-04-18] MEDS ORDERED: Ondansetron PF 4 MG/2 ML Vial IVP PRN (13:13)
--- NOTE | 2020-04-18 13:17 | PDOC.HHP ---
Hospitalist HPI - History of Present Illness Back pain, chest pain History of Present Illness: This is a 59-year-old male patient with a history of coronary artery disease status post CABG on 04/05/2020, who was brought in this morning by EMS on account of chest pain. At the time of my evaluation patient was relatively stable and unable to speak clearly. Most of the information was obtained from charts and physician handoff. He was in his usual state of health when earlier this morning he went to the bathroom and passed out briefly. He fell down but did not hit his head. He did report some nausea. EMS was activated and he was given aspirin in route to the ED. EKG done in the field was concerning for NSTEMI in the late was called prior to arrival. On arrival he is blood pressure was hypotensive with BP 89/49, pulse 99, respiratory rate 18, saturating 99 200% on room air. His labs showed omaira kocytosis of 32.4, 8 bands, hemoglobin 8.3 down from a baseline of 9.7 8 days ago. Platelet count was 531, sodium 131, creatinine 1.4 from a baseline of 0.77 about 7 days ago, glucose was 248, and troponin elevated at 0.157 . Given difficulty establishing peripheral line on arrival,, wide bore catheter was placed under ultrasound guidance. Cardiology was present, evaluated and given IV heparin bolus and sent to the Dial Lathe Operator for catheterization. He was assessed fully catheterized and no occlusion was noted in his coronary arteries however during the process, the patient had a large volume hematemesis. His blood pressure was fairly stable he was started on dopamine drip. Prior to my evaluation he has been started on massive transfusion protocol and had received 3 FFP's 3 packed red blood cells. Gastroenterology was consulted who decided to take him to endoscopy once stable Hospitalist team consulted for admission. Hospitalist ROS - Review of Systems Constitutional: denies: fever, chills - Exam General Appearance: awake alert, ill appearing General - other findings: NG tube in place Eye: anicteric sclera Eye - other findings: mucosal palor Neck: no JVD, no lymphadenopathy Heart: RRR, no murmur, no rubs Heart - other findings: Sternotomy scar Respiratory: no wheezes, no rales, no ronchi, no tachypnea Gastrointestinal: soft, non-tender, non-distended, normal bowel sounds Extremities: no cyanosis, no clubbing, no edema Skin: normal turgor, no rashes Neurological: cranial nerve grossly intact, no focal deficits Psychiatric: A&O x 3, flat affect Hospitalist Results - Labs Result Diagrams: 04/18/20 16:56 04/18/20 09:49 Lab results: WBC 26.8 thou/uL (4.8-10.8) H 04/18/20 12:28 Hgb 10.2 g/dL (14.0-18.0) L 04/18/20 12:28 Hct 29.9 % (42.0-52.0) L 04/18/20 12:28 MCV 92.2 fL (78.0-98.0) 04/18/20 12:28 Plt Count 284 thou/uL (130-400) 04/18/20 12:28 Neutrophils % 92.9 % (42.0-75.0) H 04/18/20 12:28 Band Neuts % (Manual) 8 % (5-11) 04/18/20 09:49 Sodium 131 mmol/L (136-145) L 04/18/20 09:49 Potassium 4.5 mmol/L (3.5-5.1) 04/18/20 09:49 Chloride 96 mmol/L (98-107) L 04/18/20 09:49 Carbon Dioxide 21 mmol/L (22-29) L 04/18/20 09:49 BUN 54 mg/dL (8.4-25.7) H 04/18/20 09:49 Creatinine 1.40 mg/dL (0.7-1.3) H 04/18/20 09:49 Glucose 248 mg/dL (70-105) H 04/18/20 09:49 Calcium 8.4 mg/dL (7.8-10.44) 04/18/20 09:49 Total Bilirubin 0.4 mg/dL (0.2-1.2) 04/18/20 09:49 AST 26 U/L (5-34) 04/18/20 09:49 ALT 31 U/L (8-55) 04/18/20 09:49 Alkaline Phosphatase 138 U/L (40-110) H 04/18/20 09:49 Creatine Kinase 40 U/L (30-200) 04/18/20 09:49 CK-MB (CK-2) 0.8 ng/mL (0-6.6) 04/18/20 09:49 Troponin I 0.157 ng/mL (< 0.028) H 04/18/20 09:49 Serum Total Protein 6.8 g/dL (6.0-8.3) 04/18/20 09:49 Albumin 3.4 g/dL (3.5-5.0) L 04/18/20 09:49 Hospitalist H&P A/P - Plan Plan: This is a 59-year-old male patient with a history of coronary artery disease at this post CABG who presented with recurrent chest pain with initial concerns for NSTEMI. He was taken to the Dial Lathe Operator which showed no coronary occlusions however started have been hematemesis for which she received FFP/platelets/blood transfusion. Given 8/stable blood pressure and bleeding risk he will be admitted to the CCU Hemorrhagic shock Secondary to upper GI bleed May be bleeding PUD in the setting of anticoagulation Received transfusionfollow H&H GI consultedgoing for endoscopy. Upper GI bleeding Management as above. CAD status post CABG Repeat CAT today was negative. Restart medications once stabilized. Heart failure with reduced ejection fraction Last EF 30 to 35% Continue goal-directed therapy once stable. No indication of acute exacerbation at the moment. Continue monitoring daily weight, input output VT prophylaxisSCD CODE STATUSfull
[2020-04-18] MEDS ORDERED: Iopamidol 370 76% 100 ML VIAL ONE (13:21)
[2020-04-18] MEDS ORDERED: Iopamidol 370 76% 50 ML VIAL FS ONE (13:21)
[2020-04-18 13:43] LABS: Amphetamine Not Detected (NotDetected); Barbiturates Screen Not Detected (NotDetected); Benzodiazepine Screen Not Detected (NotDetected); Cocaine Metabolite Screen Not Detected (NotDetected); Medtox Control Line Valid? VALID (VALID); Medtox Reader # READER 1; Methadone Not Detected (NotDetected); Methamphetamine Not Detected (NotDetected); Opiate Screen Detected (NotDetected); Oxycodone Screen Not Detected (NotDetected); Phencyclidine (PCP) Not Detected (NotDetected); THC/Cannabinoid Screen Not Detected (NotDetected); Tricyclic Screen Not Detected (NotDetected)
--- NOTE | 2020-04-18 14:48 | RAD ---
RADIOGRAPH CHEST 1 VIEW: DATE: 04/18/2020 TIME: 11:47 AM HISTORY: 59-year-old male status post NG tube placement COMPARISON: 04/18/2020 9:53 AM FINDINGS: There is a new esophagogastric tube coursing through the left upper quadrant. The side-port and dista l tip are outside of the field of view. There is a defibrillation paddle overlying the right chest. Comment interstitial markings. Shallow in spiration. Supine positioning makes this insensitive for pneumothorax detection. IMPRESSION: Esophagogastric tube placement into the region of the stomach, with distal portion outside of field o f view.
[2020-04-18] MEDS ORDERED: Pantoprazole 80 MG in Sodium Chloride 0.9% 100 ML IVPB SCH (15:15)
[2020-04-18] MEDS ORDERED: Pantoprazole 40 MG VIAL IVP SCH (15:15)
--- NOTE | 2020-04-18 15:41 | CON ---
DATE OF CONSULTATION: HISTORY OF PRESENT ILLNESS: Emanuel Avila is a 59-year-old male, who is Nepali-speaking only. On April 03, 2020, he presented to [facility] with chest discomfort. He ultimately was transferred here. EKG showed what appeared to be an old inferior infarction and he had chest pain for approximately 24 hours prior to that. He underwent cardiac catheterization by Dr. Benton and was found to have 80% proximal LAD, 70% mid LAD, and severe disease in the second diagonal. The proximal circumflex was occluded and the proximal right coronary artery was occluded. It was felt that he was outside the range of time where intervention would be advantageous. His ejection fraction was 30%. He then underwent CABG x4 by Dr. Moeller. A WARREN was placed to the second diagonal and then sequentially to the distal LAD. Left radial was placed to the obtuse marginal. Vein graft was placed to the right posterior descending. The radial to the obtuse marginal was piggybacked onto the right PDA graft. He was advised to have a LifeVest, however, he declined and he was discharged. Echocardiogram at the time of discharge revealed ejection fraction of 30% to 35% with inferior akinesis, mild mitral regurgitation, and moderate to severe tricuspid regurgitation. He states he has been taking his medications and feeling well. Today at 8:30 a.m., approximately 1 to 1.5 hours prior to arrival here, he had onset of mid to lower sternal pressure, tightness. He denied any pleuritic component to his chest pain. He denied any diaphoresis, nausea, or vomiting. In the emergency room, his pressure was in the 70s to 80s systolic. He was given fluids as well as started on dopamine. He had Q-waves and slight ST elevation in II, III, and aVF as well as poor R-wave progression across the precordium. The EKG changes were very similar to what he had prior to bypass surgery. PAST MEDICAL HISTORY: Hypercholesterolemia, coronary artery disease. MEDICATIONS: When he is discharged include, 1. Aldactone 25 mg q.a.m. 2. Aspirin 325 q.a.m. 3. Furosemide 40 mg q.a.m. 4. Atorvastatin 40 mg q.a.m. 5. Metoprolol 12.5 mg b.i.d. 6. Lisinopril 2.5 mg b.i.d. 7. [place]. ALLERGIES: NONE. SOCIAL HISTORY: Occasionally drinks. He does not smoke. FAMILY HISTORY: Unremarkable. PHYSICAL EXAMINATION: VITAL SIGNS: Blood pressure 80/40, pulse of 110. HEENT: PERRL. NECK: Supple. CHEST: Clear. CARDIAC: S1 and S2 normal without any S3, S4, or murmurs. Even with a deep breath, his chest pain does not seem to worsen. ABDOMEN: Normal bowel sounds without tenderness. EXTREMITIES: Revealed no clubbing, cyanosis, or edema. NEUROLOGIC: Grossly intact. LABORATORY DATA: EKG findings as noted above-sinus tachycardia with left axis deviation, inferior infarction with slight ST elevation in I, II, III and poor R-wave progression. His EKG is very similar to previous EKGs prior to bypass surgery. None of his lab work has returned, although reportedly his hemoglobin was 8.3, whereas it was 9.7 at the time of discharge. IMPRESSION: 1. Chest discomfort without acute EKG changes. 2. Status post coronary artery bypass grafting x4. 3. Presented prior to bypass surgery with inferior infarction, too late for intervention. 4. Ischemic cardiomyopathy with ejection fraction of 30% to 35% on echo prior to discharge, the patient declining LifeVest. 5. Hypercholesterolemia. 6. hemoglobin drop since discharge. PLAN: His EKG does not show any acute changes and so therefore this is certainly not a STEMI; however, he does have chest discomfort with recent bypass surgery. Overall, it is recommended that he undergo cardiac catheterization to define his anatomy. In the laborer salvage, he was found to have patent grafts. However, the right posterior descending graft did have an 80% distal stenosis. He also in the laborer salvage, began to have significant amount of hemoptysis with nancy blood. In the emergency room, he had been given 5000 units of heparin. In the laborer salvage, he has been given protamine 20 mg. Even though there was some stenosis in his right posterior descending graft, it was felt that he was not a candidate for intervention due to his GI bleeding, hemoptysis, and the fact that he had inferior wall akinesis on echocardiogram. He therefore will be returned to the emergency room for them to further do with his gastrointestinal bleeding. Serial cardiac enzymes will be performed, although I doubt this was a primary cardiac event. Job ID: [id number] [facility]
[2020-04-18] MEDS ORDERED: Morphine 2 MG/ML SYRINGE SLOW IVP SCH (16:00)
[2020-04-18] MEDS ORDERED: Morphine 2 MG/ML VIAL ONE (16:03)
[2020-04-18 17:09] LABS: #Eosinphils 0.1 thou/uL (0.0-0.7); #Lymphocytes 0.9 thou/uL (1.20-3.40); #Monocytes 0.8 thou/uL (0.11-0.59); %Basophils 0.1 % (0.0-1.0); %Eosinophils 0.3 % (0.0-10.0); %Neutrophils 90.6 % (42.0-75.0); Mean Corpuscular HGB CONC 34.5 g/dL (32.0-36.0); Mean Corpuscular Hemoglobin 31.6 pg (27.0-31.0); Mean Corpuscular Volume 91.8 fL (78.0-98.0); Mean Platelet Volume 6.4 fL (7.4-10.4); Platelet Count 260 thou/uL (130-400); RBC Distribution Width 13.6 % (11.5-14.5); Red Blood Cell (RBC) Count 3.79 mill/uL (4.70-6.10); White Blood Cell (WBC) Count 18.7 thou/uL (4.8-10.8)
[2020-04-18 17:34] LABS: Troponin I 0.119 ng/mL (< 0.028)
--- NOTE | 2020-04-18 19:08 | CON ---
DATE OF CONSULTATION: 04/18/2020 REASON FOR CONSULT: GI hemorrhage. HISTORY OF PRESENT ILLNESS: Mr. Castellanos is a 59-year-old gentleman who was brought in today by EMS around 9 or 10 apparently for chest pain that started about 3 this morning. Apparently, he was having this chest pain that was burning in the chest and epigastrium. He went to the bathroom, had a presyncopal or syncopal episode there and EMS was summoned. Apparently, he told EMS he had also vomited, but the content of that was unknown. The patient does not know if he had black or tarry stools. In any event, he arrived here hypotensive with blood pressure 75/41, heart rate 108 to 106. He had an EKG, which apparently showed some changes of lateral ischemia and acute coronary syndrome was activated. His troponin was 0.175. He went to the laborer filter plant with Dr. So, and had clean coronaries and somewhere after the completion of that study, had acute hematemesis, apparently large volume of red blood and clots. The patient was brought back to the emergency room where resuscitation was begun. His hemoglobin had been 8.3 on admission, had been 9.7 after discharge on 04/09/20. His BUN and creatinine were 54 and 1.4, having been 23 and 0.7 on 04/10/20. He received 1 L of fluids in the ER. He received 3 units FFP and 3 units of blood and was placed on pressors. I entered the emergency room, he had an NG tube in place with no drainage, with a little bit of old blood. His heart rate was 103. He was on Levophed and dopamine. The dopamine was being weaned and he had a blood pressure 138/89. Lewis catheter is in place and he is making urine. The patient is Latvian-speaking only. Denies any chest pain or abdominal pain. At this time, he denies any shortness of breath. In talking with the he denied any alcohol, drugs, or tobacco. Denied any hematemesis or melena at home. He has never had ulcers or bleeding as far as he knows. PAST MEDICAL HISTORY: 1. Recent OK with cath test that is showing three-vessel coronary artery disease for which he underwent bypass last month. 2. Previous coronary stent many years ago. PAST SURGICAL HISTORY: None known. SOCIAL HISTORY: Occasional alcohol use. No tobacco, no drugs. FAMILY HISTORY: Negative for colorectal cancer, liver disease, or ulcers. ALLERGIES: NO KNOWN DRUG ALLERGIES. REVIEW OF SYSTEMS: Negative for fever, chills, rashes, myalgias, arthralgias, heavy NSAID use other than aspirin. MEDICATIONS: 1. He has received Protonix in the ER, also aspirin. 2. He received fentanyl for pain, Zofran for nausea and 1 L of normal saline. 3. Blood products administered as noted per HPI. 4. He has also apparently received Protonix 40 mg once. 5. He did receive heparin 5000 units in the laborer filter plant. Medicines at home 1. When he went home, he was discharged on. a. Aldactone 25 mg a day. b. Aspirin 325 mg a day. c. Furosemide 40 mg a day. d. Atorvastatin 40 mg a day. e. Metoprolol 12.5 mg b.i.d. f. Lisinopril 2.5 mg a day. g. Hydrocodone p.r.n. PHYSICAL EXAMINATION: GENERAL: The patient is in the shock room trauma 1 in the ER. VITAL SIGNS: His temperature is 98, pulse 90, blood pressure is presently 129/87. He has been afebrile. GENERAL: He is alert. He is oriented. He speaks Latvian. HEENT: Conjunctiva and sclera are pink and clear respectively. He has an NG tube in place with some old blood in. On NG suction, we did not remove much. CHEST: He has had a median sternotomy which is nontender and the skin appears normal. There is no signs of breakdown or infection. LUNGS: Clear. HEART: Regular rate and rhythm. Mild sinus tachycardia. ABDOMEN: Epigastric area is nontender. There is no palpable hepatosplenomegaly. Lower abdomen is nontender. Bowel sounds are positive. EXTREMITIES: No clubbing, cyanosis, or edema. Pulses are palpable in both upper and lower extremities. LABORATORY DATA: As per HPI. In addition to that, he has a history of hemoglobin A1c 5.5 , alkaline phosphatase 138 this admission, has been normal last admission. Liver function tests normal with AST and ALT at 26 and 31. His baseline BUN and creatinine about 20 and 0.6 on admission, today they are 54 and 1.4, glucose 248. INR 1.1. White count 32,000, hemoglobin 8.3 on admission, MCV normal, platelet count 531, neutrophils 82. Hemoglobin on last admission was 15.7 and 9.7 on discharge and 8.3. He did receive a heart bypass surgery during that admission. ASSESSMENT: 1. Patient came in with nausea and episode of vomiting at home. There may be a syncopal episode while sitting on the toilet and was hypotensive. His hemoglobin was 8, it was 9.7 last admission, but had been 15 on the onset of that admission. It is unclear if he had antecedent bleeding which brought him into the hospital, or if this was bleeding that occurred after he was here. I suspect it is more of the former as his BUN and creatinine are up indicating prerenal azotemia or elevated BUN related to reabsorption of blood from the GI tract. Alternatively, it may be that throughout this intervention, hypertension, he had a Citlaly-Campos tear in the laborer filter plant, which subsequently bled after he had received heparin. He is adequately resuscitated now, seems to have not suffered an OK. He will need to undergo urgent endoscopy in light of the amount of bleeding and his presenting blood pressures. We will proceed with that on an emergent basis today. 2. He has a history of heart failure with EF of 30% to 40%, but appears to be tolerating liquid boluses well. He is breathing comfortably on room air. His pressure is back up. 3. The patient did receive heparin in the laborer filter plant. The ER doctor tells me the patient has received protamine reversal now. 4. Hemoglobin over 14 last admission, discharge at 9.7, readmitted today at 8.3. PLAN: 1. Continue IV PPIs. 2. Monitor in ICU setting. 3. Urgent endoscopy for control of hemorrhage as triage. The patient better based on source of bleeding in light of his recent heart attack and recent bypass surgery, so we can rapidly as possibly get him back on his baseline cardiac medications. 4. Risks, benefits, and possible complications of endoscopy including perforation, reaction to medication, aspiration were discussed the patient via one of the ER nurses, who speaks fluent Latvian. Job ID: [id number]
--- NOTE | 2020-04-18 23:47 | OP ---
DATE OF PROCEDURE: 04/18/2020 PREPROCEDURE DIAGNOSES: 1. Gastrointestinal hemorrhage. 2. Recent myocardial infarction with coronary artery bypass grafting 2 weeks ago. 3. Status post 3 units of transfusion, hemoglobin increased from 8.3 to 10.2. 4. Hemorrhagic shock, status post resuscitation. 5. Full anticoagulation with heparin before cardiac cath lab technologist, status post reversal. POSTPROCEDURE DIAGNOSES: 1. 500 mL of fresh clot in the stomach. 2. Large Dieulafoy vessel in the proximal stomach just below the GE junction. This is not a varix. 3. Trauma from OG tube noted in the GE junction, but no signs of Citlaly-Campos tear. 4. Normal duodenum to the third portion. 5. Scant erosion at the pylorus. No signs of bleeding or visible vessel. 6. Injection with an epinephrine 1:10,000, 10 mL and four clips placed on the visible vessel. 7. Prolonged procedure taking 1-1/2 hours from 1334 to 1500. ANESTHESIA: General endotracheal anesthesia. PROCEDURE IN DETAIL: After the patient was informed of the risks, benefits, and possible complications of endoscopy including perforation, reaction to medication, aspiration, informed consent was obtained. The patient was brought to the endoscopy suite, where he was sedated in standard fashion. Once he was intubated and airway secured, the scope was advanced to the esophagus. We kept him on his back and he just had a heart catheterization and the Cardiology did not want to move his weight on his right inguinal area. The esophagus appeared normal without varices. There was no evidence of Citlaly-Campos tear actively in the GE junction. Indeed there was so much a large amount of fresh red clot. We were ultimately able to irrigate this with kit and removed by large snare and Kim retrieval net. After about an hour, we finally got the area cleared. We were able to evaluate the remainder of the stomach as well, which was normal except for a small erosion in the pyloric channel. There were no evidence of visible vessels. There was normal duodenal bulb, normal duodenum in the 3rd and 4th portion. In the proximal stomach, retroflexion revealed a large about 1 cm vessel, pulsatile. This appears to be a large visible vessel, which would go along with a Dieulafoy like vessel or possibly a large ulcer including the entire ulcer base. This was injected 1:10,000 epinephrine and clips x4 placed . There was no bleeding at the end of procedure. We gave the patient some Reglan to mobilize the clot in his antrum and down the duodenum and we had him extubated. He will stay in the ICU overnight. If he does well, we will be able to move him to the IMU bed later today. He may need a second-look endoscopy in a few days if there are any signs of recurrent bleeding. The scope was removed. The patient tolerated the procedure well without complication. Job ID: [id number]
[2020-04-19 03:50] LABS: #Basophils 0.1 thou/uL (0.0-0.2); #Lymphocytes 1.7 thou/uL (1.20-3.40); #Monocytes 0.9 thou/uL (0.11-0.59); #Neutrophils 10.4 thou/uL (1.40-6.50); %Basophils 0.4 % (0.0-1.0); %Eosinophils 0.3 % (0.0-10.0); %Lymphocytes 13.2 % (21.0-51.0); %Monocytes 6.5 % (0.0-10.0); %Neutrophils 79.5 % (42.0-75.0); Hemoglobin 11.3 g/dL (14.0-18.0); Mean Corpuscular HGB CONC 33.9 g/dL (32.0-36.0); Mean Corpuscular Hemoglobin 31.1 pg (27.0-31.0); Mean Corpuscular Volume 91.7 fL (78.0-98.0); Mean Platelet Volume 6.3 fL (7.4-10.4); Platelet Count 257 thou/uL (130-400); RBC Distribution Width 13.9 % (11.5-14.5); Red Blood Cell (RBC) Count 3.63 mill/uL (4.70-6.10); White Blood Cell (WBC) Count 13.1 thou/uL (4.8-10.8)
[2020-04-19 04:18] LABS: ALT (SGPT) 71 U/L (8-55); AST (SGOT) 71 U/L (5-34); Albumin 3.1 g/dL (3.5-5.0); Alkaline Phosphatase 134 U/L (40-110); Anion Gap 15 mmol/L (10-20); BUN (Urea Nitrogen) 22 mg/dL (8.4-25.7); Bilirubin, Total 0.8 mg/dL (0.2-1.2); Calc. Creatinine Clearance 0 mL/min (70-130); Calcium 7.6 mg/dL (7.8-10.44); Carbon Dioxide 19 mmol/L (22-29); Chloride 110 mmol/L (98-107); Estimated GFR-MDRD Greater than 90; Globulin 2.9 g/dL (2.4-3.5); Glucose 89 mg/dL (70-105); Potassium 4.6 mmol/L (3.5-5.1); Sodium 139 mmol/L (136-145)
--- NOTE | 2020-04-19 05:47 | CON ---
DATE OF CONSULTATION: 04/18/2020 HISTORY OF PRESENT ILLNESS: Mr. Castellanos is a gentleman, who presented with chest discomfort. He was taken to laboratory machinist and then developed bloody vomit after the cardiac catheterization. He was transfused in the emergency room and transferred up to endoscopy where he was found to have visible bleeding vessel. He was examined while he was intubated. PAST MEDICAL HISTORY: Remarkable for: 1. April 05, coronary bypass grafting x4 with WARREN to second diagonal to the distal LAD and left radial artery from aorta to the obtuse marginal and reverse greater saphenous vein graft from the aorta to the PDA. He has gotten out of the hospital little over a week ago. 2. He had a coronary stent done in the past. FAMILY HISTORY: Negative for lung disease in early age. SOCIAL HISTORY: Unremarkable. REVIEW OF SYSTEMS: Not obtainable. PHYSICAL EXAMINATION: VITAL SIGNS: Blood pressure is 110 systolic. His heart rate was 114. GENERAL: He was starting to wake up. He was intubated. EYES: Pupils are equal. Sclerae are anicteric. NECK: Without lymphadenopathy. LUNGS: Clear. HEART: Regular rhythm. S1 and S2 are normal. ABDOMEN: Soft and nontender. EXTREMITIES: Without clubbing, cyanosis, or edema. LABORATORY DATA: White count was 26 at noon, hemoglobin 10.2, platelets 284. Electrolytes were remarkable for chloride of 110. Creatinine was 0.7. Liver enzymes were mildly elevated. Albumin was 3.1. IMPRESSION: Gastrointestinal bleed. Visible vessel was injected, and apparently the bleeding stopped. As anticipated, he will be extubated in the recovery room. Critical care time 35 min. Job ID: [id number] [facility]
[2020-04-19] MEDS ORDERED: Sodium Chloride 0.9% 1,000 ML IV SCH (08:30)
[2020-04-19 10:30] LABS: Hemoglobin 11.7 g/dL (14.0-18.0); Platelet Count 264 thou/uL (130-400)
--- NOTE | 2020-04-19 12:26 | PRG ---
DATE OF SERVICE: 04/19/2020 SUBJECTIVE: Mr. Russ has done well overnight with no further bleeding. OBJECTIVE: VITAL SIGNS: Blood pressure is 130s/70s, pulse around 100. He has had good urine output per the nurses, 1150 in plus blood products in the ER, 2975 out of his Lewis. LUNGS: Clear. HEART: Regular without clicks or murmurs. ABDOMEN: Soft, nontender today. LABORATORY DATA: Hemoglobin is 11.3 this morning that is after 4 units of blood since admission when he was 8.3; white count 13.1, down from 18.7; platelets normal. Chemistry; BUN and creatinine are 22 and 0.73. AST and ALT , alkaline phosphatase 134. ASSESSMENT: 1. Acute GI hemorrhage from a vessel, probably an ulcer just below the GE junction, injected with epi and clipped x4. No further bleeding at this time. 2. Recent heart attack with bypass. RECOMMENDATIONS: Switch to IV Protonix q.12 hours. Full liquid diet. We will hold aspirin for about a week. Job ID: [id number]
[2020-04-19] MEDS ORDERED: FLU VACC QS2020-21(6MOS UP)/PF 60 MCG/0.5 ML SYRINGE IM ONE (12:45)
--- NOTE | 2020-04-19 13:29 | PDOC.HOSPP ---
- Subjective Subjective: Patient was seen examined along with Dr. Brice in the PACU. No further bleeding noted. His hemoglobin remained stable. Discussed with GI, will advance his diet to full liquid diet, and transferred to medical floor, continue with hemoglobin check every 12 hours, transitioned to PPI IV. - Objective Vital Signs & Weight: Vital Signs (12 hours) Temp Pulse Resp BP Pulse Ox 04/19/20 10:00 96.8 F L 100 18 114/65 94 L I&O: 04/18/20 04/19/20 04/20/20 06:59 06:59 06:59 Intake Total 1150 Output Total 2975 Balance -1825 Result Diagrams: 04/19/20 09:52 04/19/20 03:33 Radiology Reviewed by me: Yes EKG Reviewed by me: Yes - Exam General Appearance: NAD Eye: PERRL ENT: normocephalic atraumatic Neck: supple Heart: RRR Respiratory: CTAB Gastrointestinal: soft Extremities: no cyanosis, no clubbing Skin: normal turgor Neurological: cranial nerve grossly intact Musculoskeletal: normal tone Hosp A/P - Plan This is a 59-year-old male patient with a history of coronary artery disease with s/p CABG who presented with recurrent chest pain with initial concerns for NSTEMI. He was taken to the Human Resources Benefits Administrator which showed no coronary occlusions. However, he started have been hematemesis while in the tree tapping laborer, for which she received FFP/platelets/blood transfusion. Hemorrhagic shock - secondary to UGIB. resolved --s/p EGD, hemodynamically stable --Transfer to medical floor. Continue H&H every 12hr. Change PPI drip to twice daily --D/w GI, appreciate Dr. Brice UGIB - s/p EGD --s/p Epi and clipped --H&H stable. mgt as above CAD status post CABG --s/p LHC, no evidence of occlusion --resume ASA in about 1 week per GI --Resume statin/bb/acei/spironolacton/laxis Heart failure with reduced ejection fraction --Last EF 30 to 35% --compensated, resume home meds. DVT ppx: SCD GI ppx: PPI Code Status: Full code Anticipated Dispo: Home when medically stable
--- NOTE | 2020-04-19 16:00 | PRG ---
DATE OF SERVICE: 04/19/2020 SUBJECTIVE: Mr. Emanuel Avila is well overnight. He slept in the recovery room. He was extubated shortly after his endoscopy yesterday. OBJECTIVE: VITAL SIGNS: He is afebrile. Heart rate is 100, oximetry is 94% on room air, blood pressure 114/65. LUNGS: Clear. HEART: Regular rhythm. ABDOMEN: Soft. IMPRESSION: Stable post emergent endoscopy for gastrointestinal bleed. A visible vessel was identified. The bleeding was stopped endoscopically. He is transferring out of the PACU to a medical bed today. We will follow . Job ID: [id number]
[2020-04-19] MEDS ORDERED: Acetaminophen 325 MG TAB PO PRN (18:16)
[2020-04-19] MEDS: HYDROcodone/Acetaminophen 5/325 mg Tablet PO PRN (18:29)
[2020-04-19] MEDS: Atorvastatin Calcium 40 MG TAB PO SCH (20:29)
[2020-04-19] MEDS: Metoprolol Tartrate 25 MG TAB PO SCH (20:29)
[2020-04-19] MEDS: Pantoprazole 40 MG VIAL IVP SCH (20:31)
[2020-04-19 21:10] LABS: Hemoglobin 11.3 g/dL (14.0-18.0); Platelet Count 244 thou/uL (130-400)
[2020-04-20 03:59] LABS: Anion Gap 11 mmol/L (10-20); BUN (Urea Nitrogen) 15 mg/dL (8.4-25.7); Calc. Creatinine Clearance 0 mL/min (70-130); Calcium 8.1 mg/dL (7.8-10.44); Carbon Dioxide 24 mmol/L (22-29); Chloride 106 mmol/L (98-107); Estimated GFR-MDRD Greater than 90; Glucose 90 mg/dL (70-105); Sodium 137 mmol/L (136-145)
[2020-04-20 04:01] LABS: #Eosinphils 0.3 thou/uL (0.0-0.7); #Lymphocytes 2.2 thou/uL (1.20-3.40); #Monocytes 0.9 thou/uL (0.11-0.59); #Neutrophils 7.8 thou/uL (1.40-6.50); %Basophils 0.4 % (0.0-1.0); %Eosinophils 2.3 % (0.0-10.0); %Lymphocytes 19.5 % (21.0-51.0); %Monocytes 7.9 % (0.0-10.0); %Neutrophils 69.9 % (42.0-75.0); Hemoglobin 11.3 g/dL (14.0-18.0); Mean Corpuscular HGB CONC 33.1 g/dL (32.0-36.0); Mean Corpuscular Hemoglobin 30.5 pg (27.0-31.0); Mean Corpuscular Volume 92.3 fL (78.0-98.0); Mean Platelet Volume 6.5 fL (7.4-10.4); Platelet Count 275 thou/uL (130-400); Red Blood Cell (RBC) Count 3.69 mill/uL (4.70-6.10); White Blood Cell (WBC) Count 11.2 thou/uL (4.8-10.8)
[2020-04-20] MEDS: Metoprolol Tartrate 25 MG TAB PO SCH ×2 (08:53→21:24)
[2020-04-20] MEDS: Lisinopril 2.5 MG TAB PO SCH (10:11)
[2020-04-20] MEDS: Spironolactone 25 MG TAB PO SCH (10:11)
[2020-04-20] MEDS: Pantoprazole 40 MG VIAL IVP SCH ×2 (10:36→21:26)
[2020-04-20] MEDS: Furosemide 40 MG TAB PO SCH (10:37)
--- NOTE | 2020-04-20 10:39 | PRG ---
DATE OF SERVICE: 04/20/2020 SUBJECTIVE: The patient says he is feeling pretty well today. He is not having any abdominal pain or nausea. His appetite is not great, but he has been tolerating a liquid diet. Hemoglobin is stable. There has been no further report of melena since yesterday. OBJECTIVE: VITAL SIGNS: Temperature 98.4, pulse 84, blood pressure 107/68, and 97% oxygen saturation on room air. GENERAL: No acute distress. Sitting up in bed comfortably. HEART: Regular rate and rhythm. LUNGS: Clear to auscultation bilaterally. ABDOMEN: Soft, nontender to palpation. EXTREMITIES: No peripheral edema. LABORATORY STUDIES: Hemoglobin is stable this morning at 11.3, WBC 11.2, and platelets 275. INR 1.1. Sodium 137, potassium 4.0, BUN down to 15, creatinine down to 0.69, and glucose 90. ASSESSMENT AND PLAN: 1. Upper gastrointestinal bleeding from visible vessel in the gastric fundus, status post epinephrine injection and clip placement x4 by Dr. Brice on 04/18/2020. There has been no further evidence of bleeding since his procedure 2 days ago. 2. Acute blood loss anemia. Hemoglobin is stable today at 11.3 after 4-unit RBC transfusion earlier this admission. The patient continues to do it well. Stick with Dr. Brice recommendations to hold aspirin for about a week. We will advance diet to a heart healthy diet. Continue with Protonix 40 mg q.12 hours, IV while here, transition to oral b.i.d. dosing on discharge. Continue this for 2 months. GI will sign off. Please call back anytime with questions or concerns or if there is concern for recurrent bleeding. Job ID: [id number]
--- NOTE | 2020-04-20 14:07 | PDOC.HOSPP ---
- Subjective Subjective: Hb remains stable. no further bleeding noted - Objective Vital Signs & Weight: Vital Signs (12 hours) Temp Pulse Resp BP Pulse Ox 04/20/20 10:11 84 04/20/20 08:00 98.4 F 84 18 107/68 97 04/20/20 03:56 98.5 F 84 22 H 115/68 94 L I&O: 04/19/20 04/20/20 04/21/20 06:59 06:59 06:59 Intake Total 1150 Output Total 5095 850 850 Balance -1825 -850 -850 Result Diagrams: 04/20/20 03:22 04/20/20 03:22 Radiology Reviewed by me: Yes EKG Reviewed by me: Yes Hospitalist ROS - Medication Medications: Active Medications Generic Name Dose Route Start Last Admin Trade Name Freq PRN Reason Stop Dose Admin Hydrocodone Bitart/Acetaminophen 1 tab 04/19/20 18:16 04/19/20 18:29 Hydrocodone/Acetaminophen 5/325 Mg Tablet PO 1 tab Q4H PRN Administration Moderate to Severe Pain (6-10) Atorvastatin Calcium 40 mg 04/19/20 21:00 04/19/20 20:29 Atorvastatin Calcium 40 Mg Tab PO 40 mg HS JEREMY Administration Furosemide 40 mg 04/20/20 09:00 04/20/20 10:37 Furosemide 40 Mg Tab PO 40 mg DAILY JEREMY Administration Lisinopril 2.5 mg 04/20/20 09:00 04/20/20 10:11 Lisinopril 2.5 Mg Tab PO 2.5 mg DAILY JEREMY Administration Metoprolol Tartrate 12.5 mg 04/19/20 21:00 04/20/20 08:53 Metoprolol Tartrate 25 Mg Tab PO 12.5 mg BID JEREMY Administration Pantoprazole Sodium 40 mg 04/19/20 21:00 04/20/20 10:36 Pantoprazole 40 Mg Vial IVP 40 mg Q12HR JEREMY Administration Sodium Chloride 10 ml 04/19/20 21:00 04/20/20 10:38 Flush - Normal Saline 10 Ml Syringe IVF 10 ml Q12HR JEREMY Administration Spironolactone 25 mg 04/20/20 08:00 04/20/20 10:11 Spironolactone 25 Mg Tab PO 25 mg QAM-WM JEREMY Administration - Exam General Appearance: NAD Eye: PERRL ENT: normocephalic atraumatic Neck: supple, JVD Heart: RRR Respiratory: CTAB Gastrointestinal: soft, non-tender Extremities: no cyanosis Skin: normal turgor Hosp A/P - Plan This is a 59-year-old male patient with a history of coronary artery disease with s/p CABG who presented with recurrent chest pain with initial concerns for NSTEMI. He was taken to the Commercial Sales Director which showed no coronary occlusions. However, he started have been hematemesis while in the earth science laboratory technician, for which she received FFP/platelets/blood transfusion. Hemorrhagic shock - secondary to UGIB. resolved --s/p EGD with epi inj and clipped x 4, hemodynamically stable --Hb stable. diet advanced. Home in AM if stable. UGIB - s/p EGD --s/p Epi and clipped x4 --H&H stable. mgt as above CAD status post CABG --s/p LHC, no evidence of occlusion --resume ASA in about 1 week per GI --Resume statin/bb/acei/spironolactone/laxis Heart failure with reduced ejection fraction --Last EF 30 to 35% --compensated, resume home meds. DVT ppx: SCD GI ppx: PPI Code Status: Full code Anticipated Dispo: Home when medically stable
[2020-04-20] MEDS: HYDROcodone/Acetaminophen 5/325 mg Tablet PO PRN (15:46)
[2020-04-20] MEDS ORDERED: Morphine 2 MG/ML VIAL SLOW IVP PRN (16:28)
[2020-04-20] MEDS: Atorvastatin Calcium 40 MG TAB PO SCH (21:24)
[2020-04-21 07:09] LABS: #Basophils 0.1 thou/uL (0.0-0.2); #Eosinphils 0.2 thou/uL (0.0-0.7); #Lymphocytes 1.7 thou/uL (1.20-3.40); #Monocytes 0.9 thou/uL (0.11-0.59); #Neutrophils 8.4 thou/uL (1.40-6.50); %Basophils 0.5 % (0.0-1.0); %Eosinophils 2.2 % (0.0-10.0); %Lymphocytes 14.8 % (21.0-51.0); %Neutrophils 74.5 % (42.0-75.0); Hemoglobin 12.7 g/dL (14.0-18.0); Mean Corpuscular HGB CONC 32.2 g/dL (32.0-36.0); Mean Corpuscular Hemoglobin 30.1 pg (27.0-31.0); Mean Corpuscular Volume 93.3 fL (78.0-98.0); Mean Platelet Volume 6.6 fL (7.4-10.4); Platelet Count 314 thou/uL (130-400); RBC Distribution Width 14.2 % (11.5-14.5); Red Blood Cell (RBC) Count 4.23 mill/uL (4.70-6.10); White Blood Cell (WBC) Count 11.2 thou/uL (4.8-10.8)
[2020-04-21 09:10] VITALS: BP 108/65; TEMP 98.4
[2020-04-21] MEDS: Lisinopril 2.5 MG TAB PO SCH (09:15)
[2020-04-21] MEDS: Metoprolol Tartrate 25 MG TAB PO SCH (09:15)
[2020-04-21] MEDS: Furosemide 40 MG TAB PO SCH (09:17)
[2020-04-21] MEDS: Spironolactone 25 MG TAB PO SCH (09:17)
[2020-04-21] MEDS: Pantoprazole 40 MG VIAL IVP SCH (09:18)
--- NOTE | 2020-04-21 13:27 | PDOC.DS.DS ---
Provider - Provider Date of Admission: 04/18/20 10:40 Date of Discharge: 04/21/20 Admitting Provider: Darell So MD Consultations: Cardiology, Gastroentrology Primary Care Physician: NO PCP PROVIDER Course - Hospital Course Hospital Course: DISCHARGE DIAGNOSES: 1. Hemorrhagic shock 2. Upper GI hemorrhage 3. CAD with histories of status post recent CABG 4. Heart failure with reduced EF, 30-35% PERTINENT IMAGING STUDIES: Chest x-ray: No acute cardiopulmonary findings HISTORY OF PRESENT ILLNESS AND BRIEF HOSPITAL COURSE: The patient is a pleasant 59 years old gentleman who has significant past medical history as of CAD with status post CABG x4, April 05, 2020, who presented to the ED with complaint of chest discomfort. He was subsequently evaluated by cardiology in the ED, took him to the [facility], which did not show any new occlusion. However, patient developed an episode of bloody vomiting after cardiac catheterization. GI was consulted. Patient was seen by Dr. Ashford, and took him to the endoscopy on emergent basis. He underwent EGD, found he has about half liters of fresh clot of blood in the stomach. Large [place] vessel in the proximal stomach just below the GE junction. He was injected with epinephrine, and clips x4. Patient was close monitored in IMCU. He subsequently transferred to medical floor. He had no further bleeding noted. His hemoglobin remained stable above 2L at the time of discharge. Patient has cleared from GI for discharge. Patient was advised to stay off of aspirin for 1 week before resuming. He was discharged home with Protonix. Patient was advised to follow-up with PCP in 1 to 2 weeks, and recheck his CBC to make sure his hemoglobin remained stable. Patient was advised to return to the ED if his symptom recurs or worsen. PROCEDURE PERFORMED: Left heart cath: Three-vessel coronary artery disease, 4 of 4 bypass grafts patent with 80% lesion in the distal PDA graft. No intervention due to previous inferior infarction and inferior akinesis and hemoptysis and GI bleeding start in the [facility] EGD: Found final cc of fresh clot in the stomach, large [place] vessel in the proximal stomach just below the GE junction. Injections with epinephrine, 4 c lips placed on the visible vessel. DISCHARGE CONDITION: STABLE DISPOSITION: HOME PHYSICAL EXAM: General Appearance: Alert, oriented, resting comfortably, no apparent distress, well developed/nourished. HEENT: Normocephalic/atraumatic, moist mucous membrane, normal ENT inspection, normal tones. PERRLA, no scleral icterus, normal conjunctiva Neck: Supple, normal inspection, no JVD Respiratory: Lungs are clear bilaterally, normal breath sounds, no accessory muscle use Cardiovascular: Regular rate, regular rhythm, no murmur, no rubs Abdomen: Soft, nontender, nondistended, normal bowel sounds, no organomegaly, no guarding no rebound Back: Normal inspection, no CVA tenderness Extremities: No clubbing, no cyanosis, no edema Psych/Mental Status: Normal affect, speech, non-pressured, AAO x 3 Neurologic: CN II-XII are intact. Skin: Warm/Dry, Normal Color, no rashes DISCHARGE TIME SPENT: >30 MINUTES Resuscitation Status: 04/18/20 13:13 Resuscitation Status Routine Resuscitation Status: FULL: Full Resuscitation - Labs Lab Results: 04/21/20 06:43 04/20/20 03:22 Abnormal Lab Results - Last 48 hrs 04/19/20 21:00: Hgb 11.3 L, Hct 33.7 L 04/20/20 03:22: Creatinine 0.69 L 04/20/20 03:22: WBC 11.2 H, RBC 3.69 L, Hgb 11.3 L, Hct 34.0 L, MPV 6.5 L, Lymphocytes % 19.5 L, Neutrophils # 7.8 H, Monocytes # 0.9 H 04/21/20 06:43: WBC 11.2 H, RBC 4.23 L, Hgb 12.7 L, Hct 39.5 L, MPV 6.6 L, Lymphocytes % 14.8 L, Neutrophils # 8.4 H, Monocytes # 0.9 H - Physical Exam Vitals: Vital Signs (12 hours) Temp Pulse Resp BP Pulse Ox 04/21/20 09:15 85 04/21/20 08:00 98.4 F 85 18 108/65 98 Physical Exam: The patient was seen and examined on the day of discharge. Plan - Discharge Medications Prescriptions: Pantoprazole [Protonix] 40 mg PO BID #60 tab Home Medications: Medication Instructions Recorded Confirmed Type Aspirin [Ecotrin Regular Strength] 325 mg PO DAILY 100 Days #100 tab 04/11/20 04/19/20 Rx Atorvastatin Calcium [Lipitor] 40 mg PO HS 30 Days #30 tab 04/11/20 04/19/20 Rx Furosemide [Lasix] 40 mg PO DAILY 7 Days #7 tab 04/11/20 04/19/20 Rx Lisinopril [Zestril] 2.5 mg PO DAILY 30 Days #30 tab 04/11/20 04/19/20 Rx Metoprolol Tartrate [Lopressor] 12.5 mg PO BID 60 Days #60 tab 04/11/20 04/19/20 Rx Spironolactone [Aldactone] 25 mg PO QAM-WM 30 Days #30 tab 04/11/20 04/19/20 Rx HYDROcodone Bit/APAP 5/325 [[place]] 1 - 2 tab PO Q4HR PRN #60 tab 04/12/20 04/19/20 Rx Pantoprazole [Protonix] 40 mg PO BID #60 tab 04/21/20 Rx Allergies: No Known Allergies Allergy (Unverified 04/02/20 17:30) - Discharge Instructions Discharge Instructions:: NO ASPIRIN for ONE WEEK Activity:: Activity as Tolerated Nourishment:: Low Sodium Diet - Follow up Plan Referrals: Cardiac Rehab - [place] [Outside] - 7 Days (Your doctor has ordered outpatient cardiac rehab for you to begin within 1-2 weeks after you go home from the hospital. The location nearest to you is the [facility]. The front office in [place] will call you in 3-5 days to get you scheduled for your evaluation. If you do not receive a call, please reach out to them at [phone] and request an appointment. Should you have any trouble or need assistance, please call the cardiac rehab main line in [place] at [phone]) [facility] [Outside] - 04/26/20 1:30 pm (PLEASE FAX DC PAPERS TO [phone]) Meño Benton MD [Active] - Herberth Moeller MD [Active] - 05/04/20 1:30 pm Disposition: HOME Quality - Care Measures CORE MEASURES:: AMI
--- NOTE | 2020-04-21 15:37 | PRG ---
DATE OF SERVICE: 04/21/2020 SUBJECTIVE: Mr. Russ has had no further black stools today. No abdominal pain. No nausea or vomiting. OBJECTIVE: VITAL SIGNS: He is afebrile. Pulse 85, blood pressure 108/65. ABDOMEN: Soft and nontender, nondistended. IMPRESSION: 1. Upper gastrointestinal bleed from a visible vessel in the gastric fundus, status post clip placement. His hemoglobin has stabilized. He did pass a couple of black stools yesterday, but he has had no further today and his hemoglobin actually trended up a little bit today. 2. Anemia of acute blood loss. RECOMMENDATIONS: 1. Continue proton pump inhibitor. 2. Discharge home today. Job ID: [id number]
[2020-04-22 19:09] LABS: H. pylori IgA ABS Less than 9.0 units (0.0-8.9); H. pylori IgG ABS 4.34 (0.00-0.79); H. pylori IgM ABS Less than 9.0 units (0.0-8.9)
--- NOTE | 2020-04-23 08:22 | EKG ---
Test Reason : Blood Pressure : / mmHG Vent. Rate : 101 BPM Atrial Rate : 101 BPM P-R Int : 150 ms QRS Dur : 102 ms QT Int : 338 ms P-R-T Axes : 027 -48 024 degrees QTc Int : 438 ms Sinus tachycardia Left axis deviation Inferior infarct (cited on or before 02-APR-2020) Possible Anterolateral infarct (cited on or before 02-APR-2020) Abnormal ECG Confirmed by YUNIER TURPIN, MALINDA ([id number]) on 04/23/2020 8:21:29 AM Referred By: [facility] Confirmed By:MALINDA FAYE MD
== END 2020-04-21 16:15 | disposition home or self-care (01) | DRG 377 ==
LOC: ERS 09:41 → CCL 10:18 → CCU 10:40 → ERHOLD 10:41 → CCU 19:33 → ONC 04-19 10:16
PROVIDERS: ADMIT Internal Medicine Cardiovascular Disease; ATTEND Family Medicine
PROC: B2181ZZ Fluoroscopy of Left Internal Mammary Bypass Graft using Low Osmolar Contrast (ICD-10-PCS; principal; 2020-04-18)
PROC: B2131ZZ Fluoroscopy of Multiple Coronary Artery Bypass Grafts using Low Osmolar Contrast (ICD-10-PCS; 2020-04-18)
PROC: B2111ZZ Fluoroscopy of Multiple Coronary Arteries using Low Osmolar Contrast (ICD-10-PCS; 2020-04-18)
PROC: 4A023N7 Measurement of Cardiac Sampling and Pressure, Left Heart, Percutaneous Approach (ICD-10-PCS; 2020-04-18)
PROC: 3E0G8GC Introduction of Other Therapeutic Substance into Upper GI, Via Natural or Artificial Opening Endoscopic (ICD-10-PCS; 2020-04-18)
PROC: 0W3P8ZZ Control Bleeding in Gastrointestinal Tract, Via Natural or Artificial Opening Endoscopic (ICD-10-PCS; 2020-04-18)
PROC: 30233L1 Transfusion of Nonautologous Fresh Plasma into Peripheral Vein, Percutaneous Approach (ICD-10-PCS; 2020-04-18)
PROC: 30233N1 Transfusion of Nonautologous Red Blood Cells into Peripheral Vein, Percutaneous Approach (ICD-10-PCS; 2020-04-18)
PROC: 30233K1 Transfusion of Nonautologous Frozen Plasma into Peripheral Vein, Percutaneous Approach (ICD-10-PCS; 2020-04-18)
DX: K92.2 Gastrointestinal hemorrhage, unspecified (principal); I21.19 ST elevation (STEMI) myocardial infarction involving other coronary artery of inferior wall; R57.8 Other shock; I50.22 Chronic systolic (congestive) heart failure; D62 Acute posthemorrhagic anemia; E78.00 Pure hypercholesterolemia, unspecified; I25.5 Ischemic cardiomyopathy; I25.10 Atherosclerotic heart disease of native coronary artery without angina pectoris; I25.2 Old myocardial infarction; Z95.1 Presence of aortocoronary bypass graft
CPT/HCPCS: 36415; 36430; 51702; 71045; 76942; 80048; 80053; 80306; 80307; 82550; 82553; 84484; 85025; 85347; 85610; 85730; 86850; 86900; 86901; 93005; 93010; 93455; 94760; 96365; 96367; 96374; 96375; 96376; 99292; C9113; J0171; J1265; J1644; J2001; J2270; J2405; J2704; J2720; J2765; J3010; J3490; P9016; P9048; P9059; Q9967